=== PATIENT | male | born 1960 | race Two or more races ===

== ENCOUNTER 2020-03-10 11:12 | Outpatient (REF) | payer OTHER, SELFPAY ==
[2020-03-10 12:45] LABS: Alanine Aminotransferase 27 U/L (0-40); Albumin Level 4.4 g/dL (3.5-5.0); Alkaline Phosphatase 64 U/L (39-117); Anion Gap 12 (12-20); Aspartate Amino Transferase 19 U/L (5-37); Bilirubin Total 1.6 mg/dL (0.0-1.0); Blood Urea Nitrogen 17 mg/dL (9-16); Calcium 9.3 mg/dL (8.4-10.2); Carbon Dioxide 28 mmol/L (22-29); Chloride 104 mmol/L (96-108); Cholesterol 210 mg/dL; Estimated Glomerular Filt Rate > 60; Glucose Fasting 96 mg/dL (60-99); HDL Cholesterol 58 mg/dL; LDL Cholesterol Calculated 127 mg/dl; Potassium 4.7 mmol/l (3.3-5.1); Sodium 139 mmol/L (135-145); Total Protein 6.9 g/dL (6.5-8.0); Triglycerides 127 mg/dL
[2020-03-10 13:06] LABS: Prostate Specific Antigen Scr 2.72 ng/mL (<0.05-4.0)
== END 2020-03-10 11:13 | disposition home or self-care (01) ==
LOC: HO.LAB 11:12
PROVIDERS: PCP Physician Assistant; Visit Provider Physician Assistant
DX: E78.5 Hyperlipidemia, unspecified (principal); Z12.5 Encounter for screening for malignant neoplasm of prostate
CPT/HCPCS: 36415; 80053; 80061; 84153

== ENCOUNTER 2020-03-18 15:51 | Outpatient (REF) | payer OTHER, SELFPAY ==
--- NOTE | 2020-03-18 15:55 | XR_ITS ---
EXAMINATION: XR SCAPULA, LEFT CLINICAL INFORMATION: Strain of muscles, fascia, tendons of the shoulder and upper arm. COMPARISON: None TECHNIQUE: Two views of the left scapula. FINDINGS: There is no fracture or cortical disruption. Appropriate alignment at the glenohumeral and acromioclavicular joints. The visualized lung is clear. The visualized ribs are intact. XR/XR scapula LT IMPRESSION: Unremarkable appearance of the left scapula.
--- NOTE | 2020-03-18 15:55 | XR_ITS ---
EXAMINATION: XR THORACOLUMBAR SPINE CLINICAL INFORMATION: Strain of the muscles, fascia, and tendons. COMPARISON: None TECHNIQUE: 2 views of the thoracic spine. FINDINGS: The vertebral alignment is normal. No intrinsic bony abnormality. The disc heights and neural foramina are well maintained. Tiny endplate osteophytes at the lower thoracic spine. No fracture or subluxation. The surrounding prevertebral soft tissues are unremarkable. XR/XR thoracic spine 2V IMPRESSION: Mild degenerative changes at the lower thoracic spine.
== END 2020-03-18 15:52 | disposition home or self-care (01) ==
LOC: HO.XRAY 15:51
PROVIDERS: PCP Physician Assistant; Visit Provider Physician Assistant
DX: S46.812A Strain of other muscles, fascia and tendons at shoulder and upper arm level, left arm, initial encounter (principal); X58.XXXA Exposure to other specified factors, initial encounter; Y93.9 Activity, unspecified; Y92.9 Unspecified place or not applicable; Y99.8 Other external cause status; M54.6 Pain in thoracic spine
CPT/HCPCS: 72070; 73010

== ENCOUNTER 2020-04-21 14:20 | Outpatient (REF) | payer OTHER, SELFPAY | END 2020-04-21 14:21 | disposition home or self-care (01) | LOC: HO.LAB 14:20 | PROVIDERS: Visit Provider Nurse Practitioner Family | DX: L02.11 Cutaneous abscess of neck (principal) | CPT/HCPCS: 87071; 87147; 87186; 87205 ==

== ENCOUNTER → 2020-07-06 12:59 | Outpatient (BNVA) | payer OTHER, SELFPAY | PROVIDERS: PCP Physician Assistant; Visit Provider Internal Medicine Cardiovascular Disease | DX: R07.9 Chest pain, unspecified (principal); I49.3 Ventricular premature depolarization | CPT/HCPCS: 93005 ==

== ENCOUNTER → 2020-07-22 09:25 | Outpatient (REF) | payer OTHER, SELFPAY ==
--- NOTE | ~2020-07-22 | NM_ITS ---
Exercise Myocardial perfusion study Indication: Exertional chest pain to evaluate for myocardial ischemia Technique: The patient was brought in for an exercise perfusion study on 07/22/2020. Patient performed exercise as per Ricardo protocol and was injected 25 mCi of sestamibi was given intravenously one target HR was achieved. Images were obtained using the SPECT gamma camera interlaced with the gating device. Images were obtained in supine position. Resting perfusion study was performed on 07/23/2020. Patient was administered 25 mCi of sestamibi intravenously at rest. Images were then obtained in supine position. Images obtained with and without CT attenuation. Total DLP 82 mGy-cm. Images were processed with the software and compared side to side in short axis, horizontal long axis and vertical long axis views. Findings: The stress perfusion study showed non attenuated images show normal uptake of radiotracer in all segments of LV myocardium. Attenuation corrected images show minimal thinning of the basal septum of the LV myocardium. The gated study shows normal LV systolic function with calculated LVEF of 64%. LV cavity is normal in size. The gated study shows normal systolic wall thickening and contraction of all segments. There is no transient ischemic dilation. Resting study shows no change in perfusion pattern compared to stress perfusion study. Gating at rest reveals normal systolic wall motion with ejection fraction at 55%. The findings are consistent with normal myocardial perfusion. NM/NM cardiolite stress test Impression: 1. Normal myocardial perfusion 2. Gated LVEF is 64% 3. Transient ischemic dilatation not present Stress EKG is negative for ischemia
--- NOTE | 2020-07-22 09:15 | CA_ITS ---
Acquisition Time: 2020-07-22 09:29:36 Total Exercise Time: 00:04:55 Test Indications: CP, PALPITATIONS Medications: SEE CHART Protocol: BRIDGET Max HR: 160 BPM 100% of Pred: 160 BPM Max BP: 214/090 mmHG Max Work Load: 5.9 METS Exercise stress test with exercise 4 min 55 sec of Bridget protocol, with mod sob and fatigue, with 5/10 left chest discomfort at baseline which did not change with exercise, with isolated PVCs and ventricular cuplets, with hypertensive response to exercise with max BP 214/90, without EKG changes meeting criteria for ischemia, with borderline ST depression inferiorly and V5-V6 starting at 4 min recovery and back to baseline EKG by 9 min recovery. Nuclear images pending. Test reviewed with Dr Plaza. Referred By: Jose Oh Overread By: JULIANA YOUNGER
== END ==
LOC: HO.CARD 09:25
PROVIDERS: Visit Provider Internal Medicine Cardiovascular Disease
DX: R07.9 Chest pain, unspecified (principal)
CPT/HCPCS: 78452; 93016; 93017; 93018; A9500

== ENCOUNTER 2020-10-26 10:55 | Outpatient (REF) | payer OTHER, SELFPAY ==
[2020-10-26 12:07] LABS: Hematocrit 46.6 % (42-52); Hemoglobin 15.4 g/dl (14.0-18.0); Mean Corpuscular Hemoglobin 31.5 pg (27.0-33.0); Mean Corpuscular Volume 95.3 fL (80-98); Mean Platelet Volume 10.4 fL (9.4-12.4); Platelet Count 243 X10*3/uL (160-400); Red Blood Count 4.89 X10*6/uL (4.60-5.80); Red Cell Distribution Width 11.9 % (11.0-16.0); White Blood Count 5.2 X10*3/uL (4.8-10.8)
[2020-10-26 12:44] LABS: TSH reflex Free T4 0.98 uIU/mL (0.32-4.0)
[2020-10-26 13:02] LABS: Alanine Aminotransferase 25 U/L (0-40); Albumin Level 4.3 g/dL (3.5-5.0); Alkaline Phosphatase 60 U/L (39-117); Anion Gap 12 (12-20); Aspartate Amino Transferase 17 U/L (5-37); Bilirubin Total 1.8 mg/dL (0.0-1.0); Blood Urea Nitrogen 14 mg/dL (9-16); Calcium 9.6 mg/dL (8.4-10.2); Carbon Dioxide 27 mmol/L (22-29); Chloride 106 mmol/L (96-108); Cholesterol 186 mg/dL; Estimated Glomerular Filt Rate > 60; Glucose Fasting 103 mg/dL (60-99); HDL Cholesterol 51 mg/dL; LDL Cholesterol Calculated 114 mg/dl; Potassium 4.6 mmol/L (3.3-5.1); Sodium 140 mmol/L (135-145); Total Protein 6.6 g/dL (6.5-8.0); Triglycerides 109 mg/dL
== END 2020-10-26 10:56 | disposition home or self-care (01) ==
LOC: HO.LAB 10:55
PROVIDERS: Absent Provider Physician Assistant; PCP Physician Assistant; Visit Provider Internal Medicine Cardiovascular Disease
DX: E78.5 Hyperlipidemia, unspecified (principal); E78.9 Disorder of lipoprotein metabolism, unspecified; I10 Essential (primary) hypertension; I25.10 Atherosclerotic heart disease of native coronary artery without angina pectoris
CPT/HCPCS: 36415; 80053; 80061; 84443; 85027; 86141

== ENCOUNTER 2020-11-03 15:13 | Outpatient (REF) | payer OTHER, SELFPAY ==
--- NOTE | ~2020-11-03 | XR_ITS ---
EXAMINATION: XR FEMUR, LEFT CLINICAL INFORMATION: Pain in left thigh COMPARISON: None TECHNIQUE: AP and lateral views of the left femur were obtained. FINDINGS: The bones and soft tissues are normal. No fracture. No osseous lesions. XR/XR femur LT 2V IMPRESSION: Unremarkable left femur exam.
== END 2020-11-03 15:14 | disposition home or self-care (01) ==
LOC: HO.XRAY 15:13
PROVIDERS: PCP Physician Assistant; Visit Provider Physician Assistant
DX: M79.652 Pain in left thigh (principal); I10 Essential (primary) hypertension; E78.9 Disorder of lipoprotein metabolism, unspecified
CPT/HCPCS: 73552

== ENCOUNTER 2020-12-21 12:53 | Outpatient (REF) | payer OTHER, SELFPAY ==
--- NOTE | 2020-12-21 16:49 | MHC.AU.AHA ---
Adult Audiological Evaluation Date of Visit: 12/21/20 Reason for Appointment: Audiological re-evaluation to monitor the status of Mr. Aquino's hearing loss and determine if there has been a change in his hearing sensitivity. He has a known bilateral sensorineural hearing loss and uses hearing aids binaurally. He feels that the left hearing aid hasn't been loud enough lately and notes excessive battery drain from both aids. He notes that he traveled to [place] recently and while on the airplane had a lot of pressure build-up and pain that lasted for several days. He denies any changes to his medical history since his last visit. Previous Hearing Test Results: [facility] [place], 10/09/2018 - Mild sloping to moderate sensorineural hearing loss bilaterally. Ear History: Family History of Hearing Loss?: Yes Medical History: Medical History: Per EMR: Premature ventricular contractions, GERD, hyperlipidemia Hearing Instrument History- Right Ear: Pipe Bowl Paint Trimmer: [email or web address] Model: [employer] B90-SP Serial Number: [id number] Battery Size: 13 Repair Warranty: 03/23/2021 Loss and Damage Warranty: 03/23/2021 Dispensed By: [facility] Date of Fittin01/02/2018 Hearing Instrument History- Left Ear: Pipe Bowl Paint Trimmer: Phonak Model: [employer] B90-SP Serial Number: [id number] Battery Size: 13 Warranty: 03/23/2021 Loss and Damage Warranty: 03/23/2021 Dispensed By: [facility] Date of Fittin01/02/2018 Otoscopy: Right Ear: Unremarkable Left Ear: Unremarkable Tympanometry: Tympanometry performed due to: To assess integrity of the middle ear system Right Ear: Normal Middle Ear System (Type A) Left Ear: Normal Middle Ear System (Type A) Hearing Evaluation: Transducer(s) Used: Insert Earphones, Bone Conduction Method: Conventional Audiometry Stimuli Used: Pure Tones Right Ear: Description of Hearing: Mild sloping to severe sensorineural hearing loss from 250-8000 Hz. Left Ear: Description of Hearing: Mild sloping to moderately-severe sensorineural hearing loss from 250-8000 Hz. Speech Recognition Threshold (SRT): Method Used: Monitored Live Voice Stimuli Used: Spondee Words Right Ear: 50 dBHL Left Ear: 50 dBHL Word Discrimination: Method: Recorded Lists Word Lists Used: NU-6 Right Ear: 56% at 90 dBHL, 80% at 95 dBHL Left Ear: 88% at 90 dBHL Comparison: Compared to the most recent evaluation: Hearing is stable. Recommendations: Audiological re-evaluation in one year. Hearing aid maintenance performed today. Hearing aids are under warranty for a few more months, so sending them both for repair today to address excessive battery drain and have cleaned and checked. Set Mr. Aquino up with loaner hearing aids using his earmolds for the time being. Diagnosis: Primary Diagnosis: H90.3 Bilateral Sensorineural Hearing Loss Services Performed: Comprehensive Audiological Evaluation (CPT 06566) Tympanometry (CPT 78369) Signature: Provider: Gillian Fleming, CCC-A
== END 2020-12-21 12:54 | disposition home or self-care (01) ==
LOC: HO.SH 12:53
PROVIDERS: Visit Provider Physician Assistant
DX: H90.3 Sensorineural hearing loss, bilateral (principal)
CPT/HCPCS: 92557; 92567

== ENCOUNTER 2021-01-18 13:38 | Outpatient (REF) | payer SELFPAY | END 2021-01-18 13:39 | disposition home or self-care (01) | LOC: HO.HAP 13:38 | PROVIDERS: Visit Provider Physician Assistant | DX: Z13.89 Encounter for screening for other disorder (principal) ==

== ENCOUNTER 2021-04-08 11:49 | Outpatient (REF) | payer SELFPAY | END 2021-04-08 11:50 | disposition home or self-care (01) | LOC: HO.HAP 11:49 | PROVIDERS: Visit Provider Physician Assistant | DX: Z13.89 Encounter for screening for other disorder (principal) ==

== ENCOUNTER 2021-05-26 10:16 | Outpatient (REF) | payer OTHER, SELFPAY ==
--- NOTE | ~2021-05-26 | XR_ITS ---
EXAMINATION: XR ABDOMEN COMPLETE CLINICAL INDICATION: Left lower quadrant pain. COMPARISON: None TECHNIQUE: 3 AP supine and upright views of the abdomen and pelvis are submitted. FINDINGS: There is a moderate stool burden, suggesting possible constipation. Gas and stool are identified to the level of the rectum. No obstruction or ileus is seen. There is no free intraperitoneal air noted. No abnormal soft tissue calcifications are seen. There is no acute osseous abnormality XR/XR abdomen 3V IMPRESSION: Findings suggest possible constipation. No suleman bowel obstruction is seen. There is no free intraperitoneal air.
[2021-05-26 11:03] LABS: Hematocrit 45.7 % (42.0-52.0); Hemoglobin 15.4 g/dl (14.0-18.0); Mean Corpuscular HGB Conc 33.7 g/dl (31.0-36.0); Mean Corpuscular Hemoglobin 31.4 pg (27.0-33.0); Mean Corpuscular Volume 93.3 fL (80.0-98.0); Mean Platelet Volume 10.2 fL (9.4-12.4); Platelet Count 263 X10*3/uL (160-400); Red Cell Distribution Width 12.3 % (11.0-16.0); White Blood Count 6.5 X10*3/uL (4.8-10.8)
[2021-05-26 11:10] LABS: Estimated Average Glucose 108 mg/dL; Hemoglobin A1c % 5.4 %
[2021-05-26 11:32] LABS: Alanine Aminotransferase 34 U/L (0-40); Albumin Level 4.4 g/dL (3.5-5.0); Alkaline Phosphatase 56 U/L (39-117); Anion Gap 13 (12-20); Aspartate Amino Transferase 59 U/L (5-37); Bilirubin Direct 0.6 mg/dL (0.0-0.5); Bilirubin Total 2.1 mg/dL (0.0-1.0); Blood Urea Nitrogen 12 mg/dL (9-16); Calcium 9.8 mg/dL (8.4-10.2); Carbon Dioxide 26 mmol/L (22-29); Chloride 104 mmol/L (96-108); Estimated Glomerular Filt Rate > 60; Glucose Random 94 mg/dL (60-115); Lipase 45 U/L (8-78); Potassium 4.1 mmol/L (3.3-5.1); Sodium 139 mmol/L (135-145); Total Protein 6.9 g/dL (6.5-8.0)
[2021-05-26 11:53] LABS: TSH reflex Free T4 2.06 uIU/mL (0.32-4.0)
== END 2021-05-26 10:17 | disposition home or self-care (01) ==
LOC: HO.XRAY 10:16
PROVIDERS: PCP Physician Assistant; Visit Provider Physician Assistant
DX: R10.32 Left lower quadrant pain (principal); E78.9 Disorder of lipoprotein metabolism, unspecified
CPT/HCPCS: 36415; 74021; 80048; 80076; 83036; 83690; 84443; 85027

== ENCOUNTER → 2021-07-04 15:18 | Outpatient (BNVA) | payer OTHER, SELFPAY | PROVIDERS: PCP Physician Assistant; Referring Provider Physician Assistant; Visit Provider Internal Medicine Cardiovascular Disease | DX: I49.3 Ventricular premature depolarization (principal); E78.5 Hyperlipidemia, unspecified | CPT/HCPCS: 93005 ==

== ENCOUNTER 2021-10-21 14:45 | Outpatient (REF) | payer SELFPAY | END 2021-10-21 14:46 | disposition home or self-care (01) | LOC: HO.HAP 14:45 | PROVIDERS: Visit Provider Physician Assistant | DX: Z46.1 Encounter for fitting and adjustment of hearing aid (principal) | CPT/HCPCS: 99499 ==

== ENCOUNTER → 2022-03-17 08:38 | Outpatient (BNVA) | payer OTHER, SELFPAY | PROVIDERS: PCP Physician Assistant; Visit Provider Nurse Practitioner Family | DX: Z13.89 Encounter for screening for other disorder (principal) ==

== ENCOUNTER 2022-06-08 07:13 | Day surgery (SDC) | payer OTHER, SELFPAY ==
--- NOTE | 2022-06-07 10:13 | P.CONAN_ITS ---
Documented by User: Marie Hernandes NP 06/07/22 10:15 HPI - Anesthesia Eval Consult details Narrative: 62yo M for Colonoscopy HLD and PVCs stable at yearly cardiac visit 06/2021 [facility] Active Problems Active Problems: All Active Problems (Updated 05/15/22 @ 12:28 by Nael Bedolla PA-C) DELMA (generalized anxiety disorder) (Acute) [place] of foot (Acute) Migraines (Acute) Constipation (Acute) Gastroenteritis (Acute) LLQ abdominal pain (Acute) Left thigh pain (Acute) Colon cancer screening (Acute) SNHL (sensorineural hearing loss) (Acute) Exertional chest pain (Acute) Hyperlipidemia (Acute) PVC (premature ventricular contraction) (Acute) Neck abscess (Acute) GERD (gastroesophageal reflux disease) (Acute) Thoracic spine pain (Acute) Borderline high cholesterol (Acute) Trapezius muscle strain (Acute) Annual physical exam (Acute) Past Medical History Medical History [place] of foot Hyperlipidemia PVC (premature ventricular contraction) Family History Family History Father No problems noted. Mother Cancer Sister Colon polyps Surgical History Surgical History (Updated 06/08/22 @ 07:27 by Noa Morton RN) History of foot surgery Hx of colonoscopy Social History Social History Housing: Apartment Alcohol intake: current Alcohol intake frequency: holidays/special occasions only Patient Tobacco Use Status: Never used Tobacco e-Cigarette/Vaping Use: Never Used Second Hand Smoke Exposure: No Are you DNR?: No Advance Directives: No Advance Directives Information Provided: Yes Nutrition Risks: No Nutritional Risk service: No Current occupational status: employed Cognitive needs: No Hearing needs: Yes (Pt has hearing aids) Vision needs: No Meds Allergies Allergy/AdvReac Type Severity Reaction Status Date / Time Grass Mix Pollens Allergen Allergy Unknown Unknown Uncoded 06/08/22 07:28 Ext Home Medications Medication Instructions Recorded Confirmed Last Taken Type ibuprofen 800 mg tablet 800 mg PO BID 03/15/20 06/08/22 06/05/22 History loratadine 10 mg tablet (Claritin) 10 mg PO DAILY 03/15/20 06/08/22 Unknown History multivitamin 1 tab PO DAILY 07/06/20 06/08/22 Unknown History Exam Exam Date and Time: June 07, 2022 1013 Narrative Narrative: EKG 06/2021 normal sinus rhythm with Incomplete right bundle-branch block NM cardiolite stress test 2020 Impression: ? 1.? Normal myocardial perfusion 2.? Gated LVEF is 64% 3. Transient ischemic dilatation not present ? Stress EKG is negative for ischemia Assessment and Plan Assessment Anesthesia Assessment: Chart Reviewed Documented by User: Trev Hernández MD 06/08/22 07:58 [facility] Past Medical History Medical History [place] of foot Hyperlipidemia PVC (premature ventricular contraction) Family History Family History Father No problems noted. Mother Cancer Sister Colon polyps Family history of problems with anesthesia: No Surgical History Surgical History (Updated 06/08/22 @ 07:27 by Noa Morton RN) History of foot surgery Hx of colonoscopy History of Problems with Anesthesia: No Social History Social History Housing: Apartment Alcohol intake: current Alcohol intake frequency: holidays/special occasions only Patient Tobacco Use Status: Never used Tobacco e-Cigarette/Vaping Use: Never Used Second Hand Smoke Exposure: No Are you DNR?: No Advance Directives: No Advance Directives Information Provided: Yes Nutrition Risks: No Nutritional Risk service: No Current occupational status: employed Cognitive needs: No Hearing needs: Yes (Pt has hearing aids) Vision needs: No Meds Allergies Allergy/AdvReac Type Severity Reaction Status Date / Time Grass Mix Pollens Allergen Allergy Unknown Unknown Uncoded 06/08/22 07:28 Ext Home Medications Medication Instructions Recorded Confirmed Last Taken Type ibuprofen 800 mg tablet 800 mg PO BID 03/15/20 06/08/22 06/05/22 History loratadine 10 mg tablet (Claritin) 10 mg PO DAILY 03/15/20 06/08/22 Unknown History multivitamin 1 tab PO DAILY 07/06/20 06/08/22 Unknown History Exam Airway Mallampati Class: I TM Dist: >3cm Neck ROM: Full Partial: Upper Heart: ok Lungs: ok Assessment and Plan Final Anesthetic Review Family History of Problems with Anesthesia: No History of Problems with Anesthesia: No NPO: Yes ASA Class: II Final Preanesthetic Review: No Changes in Pt Med Stat, Meds/Allgs Chart Reviewed, Consent Obtained/Reviewed and Anes Risks/Benef Reviewed Patient Risk: Low Procedure Risk: Low Anesthetic Plan Anesthetic Plan: MAC: and Agree w/ Assess. and Plan Disposition: Standard PACU
[2022-06-08 07:14] VITALS: BMI 26.4
[2022-06-08] MEDS: Lactated Ringers 1,000 ML 100 ML IVCONT (07:44)
[2022-06-08 08:00] VITALS: BP 145/75; PULSE 70; RESP 18; TEMP 36.8; O2SAT 99
--- NOTE | 2022-06-08 08:50 | P.HPSUR_ITS ---
Pre-Procedural Eval Section A Date of Service: 06/08/22 Section B Chief Complaint: screening Details of Present Illness: sister with polyps of colon Relevant Family History (Specify if Yes): Yes Relevant Social History: None Present Medications: see Short Stay Collaborative assessment Medical History: Significant History ([place] of foot Hyperlipidemia PVC (premature ventricular contraction)) History of Previous Operations: Relevant previous surgery/procedure and date(s) (foot surgery, colonoscopy) Allergies: Allergies Allergy/AdvReac Type Severity Reaction Status Date / Time Grass Mix Pollens Allergen Allergy Unknown Unknown Uncoded 06/08/22 07:28 Ext Review of Systems Sugical H&P ROS: Negative: Constitution, Cardiovascular, Respiratory, Neurological, Psychiatric, Hem-Onc, Allergic/Immunologic, Gastrointestinal, Genitourinary, Musculoskeletal, Integumentary, Endocrine and Eyes/Ears/Nose/Throat Exam Surgical H&P Exam: Normal: HEENT, Normal: Heart, Normal: Lungs, Normal: Extremities, Normal: Abdomen, Normal: Skin and Normal: Neurological Plan Diagnosis/Plan: Unchanged I have reviewed the history and physical and performed a pertinent physical examination on my patient. No changes have occurred unless specified. Time Spent With Patient Time: Total time managing care of this patient today ____ minutes.
--- NOTE | 2022-06-08 09:34 | W.PM.OPN ---
Operative Note Operative Note Date of Service: 06/08/22 Narrative: Operative Information Procedure Description: Colonoscopy Indication: screening Anesthesia: MAC COLONOSCOPY Instrument: Olympus variable stiffness pediatric scope 190L Colonoscopy Monitoring: Vital signs and clinical assessment, continuous EKG monitoring, Pulse oximetry, Carbon Dioxide monitoring and blood pressure monitoring were done throughout the procedure. Colon withdrawal time was 21 minutes. Procedure: The patient was placed in the left lateral decubitis position and pre-procedure medications were administered. After a digital rectal examination of the ano-rectum, the video colonoscope was inserted into the rectum and advanced through the colon to the cecum/TI. The colonoscope was slowly withdrawn in a retrograde panoramic fashion and the colon mucosa was carefully examined including a retroflexed view of the rectum. Findings and interventions are described below. Procedure Difficulty: difficult due to tight colon and severe diverticulosis Findings: Terminal Ileum-normal Cecum:normal Ascending Colon: few diverticula seen Transverse Colon -normal Descending Colon:normal Sigmoid Colon: severe diverticulosis with luminal narrowing and hypertrophy with wide mouthed tics Rectum: Retroflexion with medium sized internal hemorrhoids, grade I, in proximal rectum a semi pedunculated polyp noted about 12 mm, removed with cold snare with one clip deployed for hemostasis. I used a distal attachment which helped stabilize the scope. Anorectum - normal Colon preparation: [place] Bowel Preparation Scale Right colon; 2 Transverse colon: 3 Left colon; 3 (0 = Unprepared colon segment with mucosa not seen due to solid stool that cannot be cleared. 1 = Portion of mucosa of the colon segment seen, but other areas of the colon segment not well seen due to staining, residual stool and/or opaque liquid. 2 = Minor amount of residual staining, small fragments of stool and/or opaque liquid, but mucosa of colon segment seen well. 3 = Entire mucosa of colon segment seen well with no residual staining, small fragments of stool or opaque liquid) Impression and Post Procedure Diagnosis: polyp internal hemorrhoids diverticular disease Plan: High fiber diet leaflet Avoid straining at stool, epsom salts and sitz bath, anusol supps or cream Repeat Colonoscopy in 5 years due to polyp or earlier if clinically indicated Above findings were reviewed with the patient and relevant handouts were provided if indicated.
[2022-06-08 09:42] VITALS: BP 121/75; PULSE 69; RESP 16; TEMP 36.9; O2SAT 96
[2022-06-08 09:57] VITALS: BP 122/77; PULSE 65; RESP 18; TEMP 36.9; O2SAT 97
== END 2022-06-08 10:26 | disposition home or self-care (01) ==
PROVIDERS: PCP Physician Assistant; Visit Provider Internal Medicine Gastroenterology
PROC: 0DJD8ZZ Inspection of Lower Intestinal Tract, Via Natural or Artificial Opening Endoscopic (ICD-10-PCS; CPT 45378; principal; 2022-06-08 08:50)
DX: Z12.11 Encounter for screening for malignant neoplasm of colon (principal); Z83.71 Family history of colonic polyps; D12.8 Benign neoplasm of rectum; K57.30 Diverticulosis of large intestine without perforation or abscess without bleeding; K64.0 First degree hemorrhoids; K21.9 Gastro-esophageal reflux disease without esophagitis; E78.5 Hyperlipidemia, unspecified; K59.00 Constipation, unspecified; I49.3 Ventricular premature depolarization; J30.1 Allergic rhinitis due to pollen; Z79.51 Long term (current) use of inhaled steroids; Z79.1 Long term (current) use of non-steroidal anti-inflammatories (NSAID); Z79.899 Other long term (current) drug therapy
CPT/HCPCS: 45385; 88305

== ENCOUNTER → 2022-06-20 15:07 | Outpatient (BNVA) | payer OTHER, SELFPAY | PROVIDERS: PCP Physician Assistant; Visit Provider Nurse Practitioner Family | DX: Z13.89 Encounter for screening for other disorder (principal) ==

== ENCOUNTER → 2022-07-18 13:09 | Outpatient (BNVA) | payer OTHER, SELFPAY | PROVIDERS: PCP Physician Assistant; Referring Provider Physician Assistant; Visit Provider Internal Medicine Cardiovascular Disease | DX: I49.3 Ventricular premature depolarization (principal); E78.2 Mixed hyperlipidemia | CPT/HCPCS: 93005 ==

== ENCOUNTER 2022-09-14 15:01 | Outpatient (REF) | payer OTHER, SELFPAY ==
--- NOTE | ~2022-09-14 | XR_ITS ---
EXAMINATION: XR CHEST CLINICAL INFORMATION: Cough, unspecified. COMPARISON: 06/03/2019 chest radiographs. TECHNIQUE: 2 views of the chest were obtained. FINDINGS: No significant abnormality is noted involving the heart, lungs, mediastinum, bony thorax or soft tissues. XR/XR chest 2V IMPRESSION: No acute cardiopulmonary process.
== END 2022-09-14 15:02 | disposition home or self-care (01) ==
LOC: HO.XRAY 15:01
PROVIDERS: PCP Physician Assistant; Visit Provider Physician Assistant
DX: R05.9 Cough, unspecified (principal)
CPT/HCPCS: 71046

== ENCOUNTER 2023-01-09 15:32 | Outpatient (REF) | payer OTHER, SELFPAY ==
[2023-01-09 17:04] LABS: Blood Urea Nitrogen 14 mg/dL (9-16); Estimated Glomerular Filt Rate > 60
== END 2023-01-09 15:33 | disposition home or self-care (01) ==
LOC: HO.LAB 15:32
PROVIDERS: PCP Physician Assistant; Visit Provider Nurse Practitioner Family
DX: R10.32 Left lower quadrant pain (principal); R10.11 Right upper quadrant pain; K57.90 Diverticulosis of intestine, part unspecified, without perforation or abscess without bleeding; K21.9 Gastro-esophageal reflux disease without esophagitis; K59.09 Other constipation
CPT/HCPCS: 36415; 82565; 84520

== ENCOUNTER 2023-01-09 15:32 | Outpatient (AMB) | payer OTHER, SELFPAY ==
--- NOTE | 2023-01-09 15:39 | A.OFFVIS_ITS ---
Intake Vital Signs 01/09/23 15:41 Height 5 ft 6 in Weight 160 lb 14.999 oz BMI 26.0 BP 140/81 H Blood Pressure Location Lt brachial Position Sitting Pulse 68 Intake Visit Reasons: 6 mnth follow up Intake Note: Jorge presents in the office as a 6 month follow up. CC: He states that he is here today because he had ad pains in his stomach on sunday. He states there is sensitivity on the LLQ. He took the linzess and it seemed to help with the pains but it took a while to kick in. The discomfort was still there. Public Health Dietitian Required: No Allergies Grass Mix Pollens Allergen Ext Allergy (Unknown, Uncoded 01/09/23 15:42) Unknown HPI 6 mnth follow up HPI Details LAST VISIT GERD (gastroesophageal reflux disease) Continue on omeprazole. Discussed with patient avoiding dietary triggers and late night snacking. Staying upright for minimum 3 hours after meals discussed with patient. LLQ abdominal pain Reports left lower quadrant pain that is ongoing. Patient is moving his bowels better now that he is taking Linzess. I will take Colace to help soften his stools. Patient was diagnosed with luminal narrowing in his sigmoid colon with moderate diverticulosis. Patient was encouraged to monitor his bowels and if he will be constipated or have no bowel movement for day or 2 he needs to call the office. Also discussed with patient the importance of following high-fiber diet. Making sure that he seems all his vegetables and avoid nuts, popcorn and corn. Constipation Continue taking Linzess every day. Patient will call the office if his constipation will get worse Diverticulosis Moderate diverticulosis seen on colonoscopy. High-fiber diet encouraged as mentioned above. Patient was encouraged also to drink plenty fluids. He can start also taking stool softener Tubular adenoma Tubular adenoma found without high-grade dysplasia or carcinoma. Patient will need to report for colorectal screening in 5 years sooner in clinically necessary. Patient is agreeable to this plan. I will see him in 6 months, sooner on as needed basis. He is agreeable to the plan and verbalizes understanding of instructions. He was given the opportunity to ask questions and all questions answered. ? Thank you for allowing me to participate in his care Plan Medications New docusate sodium 100 mg PO BEDTIME 90 caps 3RF K59.00 - Constipation, unspecified TODAY'S VISIT Patient is here today for follow-up. Patient reports that Sunday he started with left lower quadrant pain. Patient reports severe abdominal bloating. Does not matter will if he eats or not. Patient reports that he took Linzess and his pain got better, however he continues to feel bloated and tender to left lower quadrant. Patient denies any nausea or vomiting. Denies any melena, hematochezia, unintentional weight loss or ribbon like stools. Patient denies any dyspepsia, dysphagia or odynophagia. Patient states that his sister gave him Colace and he had a not a bowel movement 6 hours later. Patient states that he has not had a bowel movement in last couple days today he presents with left lower quadrant discomfort. Reports to be feeling bloated. [facility] Medical History Tubular adenoma Diverticulosis [place] of foot Hyperlipidemia PVC (premature ventricular contraction) Surgical History Hx of colonoscopy History of foot surgery Family History Father No problems noted. Mother Cancer Sister Colon polyps Housing: Apartment Alcohol intake: current Alcohol intake frequency: holidays/special occasions only Patient Tobacco Use Status: Never used Tobacco e-Cigarette/Vaping Use: Never Used Second Hand Smoke Exposure: No service: No Current occupational status: employed Cognitive needs: No Hearing needs: Yes (Pt has hearing aids) Vision needs: No Review of Systems Const Denies weight gain and Denies weight loss ENT Reports no additional complaints, Denies dysphagia and Denies odynophagia Card Reports no additional complaints Resp Reports no additional complaints GI Reports abdominal pain (LLQ), Denies belching, Denies melena, Reports bloating, Denies change in bowel habits, Reports constipation, Denies dysphagia, Denies excessive flatus, Denies dyspepsia, Denies heartburn, Denies diarrhea, Denies loose stools, Denies nausea, Denies odynophagia and Denies vomiting Reports no additional complaints Musc Reports no additional complaints Neuro Reports no additional complaints Psych Reports no additional complaints Endo Reports no additional complaints Physical Exam Vital Signs: Last Vital Signs Pulse 68 01/09/23 15:41 BP 140/81 H 01/09/23 15:41 BMI result Body Mass Index 26.0 Const General: healthy appearing, no acute distress and well developed Nutritional Appearance: well nourished Orientation/consciousness: patient oriented x3 HEENT Head: Yes normal to inspection, Yes normocephalic and Yes atraumatic Face and sinus: Yes normal facial exam Mouth: Normal oral and palatal mucosa present Throat: Yes posterior oropharynx normal, Yes tonsils normal and Yes uvula midline Eyes General: appearance normal, both eyes and all related structures Neck Neck: Yes normal visual inspection, Yes full ROM and Yes trachea midline Thyroid: Thyroid normal Resp Effort & Inspection: normal respiratory effort, able to speak in complete sentences, no tracheal deviation and symmetric chest movement Auscultation: clear to auscultation bilaterally Cardio Rate: regular rate Heart sounds: S1 normal heart sound present and S2 normal heart sound present GI Inspection: Yes normal to inspection and No distended Palpation (GI): Soft to palpation, not firm, nontender and No hepatosplenomegaly present Auscultation: normal bowel sounds General: Yes no CVA tenderness Back/Spine/Pelvis Back: no CVA tenderness Skin General skin exam: elasticity normal, turgor normal and dry skin Neuro General: patient oriented x3 Psych Appearance: grossly normal Mental Status: mental status grossly normal Affect: normal affect Assessment & Plan Assessment & Plan (1) LLQ abdominal pain: Code(s): R10.32 - Left lower quadrant pain (2) Abdominal pain: Code(s): R10.9 - Unspecified abdominal pain Qualifiers: Abdominal location: left lower quadrant Qualified Code(s): R10.32 - Left lower quadrant pain (3) Diverticulosis: Code(s): K57.90 - Diverticulosis of intestine, part unspecified, without perforation or abscess without bleeding (4) GERD (gastroesophageal reflux disease): Code(s): K21.9 - Gastro-esophageal reflux disease without esophagitis Qualifiers: Esophagitis presence: esophagitis presence not specified Qualified Code(s): K21.9 - Gastro-esophageal reflux disease without esophagitis (5) Constipation: Code(s): K59.00 - Constipation, unspecified Qualifiers: Constipation type: other constipation type Qualified Code(s): K59.09 - Other constipation Plan Patient was encouraged to increase fluid intake and activity to promote better bowel motility. Patient was diagnosed with moderate diverticulosis to sigmoid colon. He has not moved his bowels for couple days. I will send him for CT scan to rule out diverticulitis. Patient will take Colace 2 capsules. Continue Linzess daily. I will see him in 6 months, sooner on as needed basis. Patient is agreeable to this plan and verbalizes understanding of instructions. He was given the opportunity to ask questions and all questions answered. Thank you for allowing me to participate in his care Orders: Orders Creatinine Today R10.11 - Right upper quadrant pain Blood Urea Nitrogen Today R10.11 - Right upper quadrant pain CT abdomen pelvis w IV con Today R10.32 - Left lower quadrant pain, R10.9 - Unspecified abdominal pain Medications: Changed From docusate sodium 100 mg PO BEDTIME 90 caps 3RF K59.00 - Constipation, unspecified To docusate sodium 200 mg (2 x 100 mg) PO DAILY 180 caps 3RF K59.00 - Constip ation, unspecified Coding Level of Care Code Est Pt Level 4 (66730) Diagnoses LLQ abdominal pain R10.32 Left lower quadrant abdominal pain R10.32 Abdominal location: left lower quadrant Diverticulosis K57.90 Gastroesophageal reflux disease, unspecified whether esophagitis present K21.9 Esophagitis presence: esophagitis presence not specified Other constipation K59.09 Constipation type: other constipation type Time Spent (min) 35 Comment 25 minutes spent with patient and additional 10 minutes spent reviewing his records
[2023-01-09 15:41] VITALS: BP 140/81; PULSE 68; BMI 26.0
== END 2023-01-09 16:03 | disposition home or self-care (01) ==
PROVIDERS: PCP Physician Assistant; Visit Provider Nurse Practitioner Family
DX: R10.32 Left lower quadrant pain (principal); K57.90 Diverticulosis of intestine, part unspecified, without perforation or abscess without bleeding; K21.9 Gastro-esophageal reflux disease without esophagitis; K59.09 Other constipation
CPT/HCPCS: 99214

== ENCOUNTER 2023-01-24 09:18 | Outpatient (REF) | payer OTHER, SELFPAY ==
--- NOTE | ~2023-01-24 | CT_ITS ---
EXAMINATION: CT ABDOMEN AND PELVIS WITH CONTRAST CLINICAL INFORMATION: Abdominal pain. COMPARISON: None available. TECHNIQUE: Multidetector volumetric images were obtained from the superior aspect of the liver through the pubic symphysis following administration 85 mL of Omnipaque 350 intravenous contrast. Sagittal and coronal reformatted images were obtained on the technologist's workstation. Oral contrast: No. This CT examination was performed using dose optimization techniques as appropriate, variously including the following: *Automated exposure control *Adjustment of mA and/or kV according to patient size (this includes techniques or standardized protocols for targeted exams where dose is matched to indication/reason for exam; i.e. extremities or head) *Use of iterative reconstruction technique DLP: 279 mGy-cm FINDINGS: LUNG BASES: The visualized lung bases are unremarkable. LIVER, GALLBLADDER, AND BILIARY TREE: The liver is mildly enlarged at 17.8 cm in greatest dimension. Difficult to wincher hepatic steatosis after IV contrast. No focal hepatic lesion or biliary ductal dilatation is present. A single tiny gallstone or possibly calcified tiny polyp is present in the gallbladder (6:23). The gallbladder is otherwise unremarkable with no evidence of gallbladder wall thickening, or obvious pericholecystic inflammatory changes. PANCREAS: Unremarkable. SPLEEN: Unremarkable. ADRENAL GLANDS: Unremarkable. KIDNEYS AND URETERS: The kidneys are normal in size, shape, and attenuation. No hydronephrosis, hydroureter, or calculi seen. No perinephric stranding. BLADDER: Unremarkable. GASTROINTESTINAL TRACT: Diverticular changes are present predominantly in the sigmoid colon with some associated mucosal thickening and some small adjacent lymph nodes are present in the mesentery in this region. Some extremely subtle pericolonic inflammatory change is seen which in the correct clinical setting could represent very mild colonic diverticulitis. No extraluminal air. No fluid collections or free intraperitoneal fluid. The small and large bowel are otherwise unremarkable. The appendix is unremarkable. ABDOMINAL WALL: No significant hernia is appreciated. LYMPH NODES: No retroperitoneal lymphadenopathy. VASCULAR: Calcific atherosclerotic changes are present in the aorta and iliofemoral vessels. There is no evidence of an abdominal aortic aneurysm. PELVIC VISCERA: Mild BPH. OSSEOUS STRUCTURES: Unremarkable. CT/CT abdomen pelvis w IV con IMPRESSION: 1. Colonic diverticulosis with some extremely subtle pericolonic inflammatory changes which in the correct clinical setting could represent very mild colonic diverticulitis. 2. Mild hepatomegaly with probable hepatic steatosis. 3. Cholelithiasis or possible tiny calcified polyp without cholecystitis. 4. Mild BPH. Fleischner guidelines were followed.
[2023-01-24] MEDS: iohexoL 350 MG/ML 100 ML INFUS..BTL IV (11:39)
[2023-01-24] MEDS: Barium Sulfate Oral (Berry) 450 ML ORAL.SUSP 900 ML PO (11:40)
== END 2023-01-24 09:19 | disposition home or self-care (01) ==
LOC: HO.CT 09:18
PROVIDERS: PCP Physician Assistant; Visit Provider Nurse Practitioner Family
DX: R10.32 Left lower quadrant pain (principal)
CPT/HCPCS: 74177; Q9967

== ENCOUNTER 2023-07-13 15:27 | Outpatient (AMB) | payer OTHER, SELFPAY ==
--- NOTE | 2023-07-13 15:28 | MHC.OFFVIS ---
Vital Signs 07/13/23 15:29 Height 5 ft 6 in Weight 154 lb 5.177 oz BMI 24.9 BP 140/78 H Blood Pressure Location Lt brachial Position Sitting Pulse 75 Intake Visit Reasons: 6 months follow up Intake Note: Jorge presents in the office as a 6 month follow up. CC: He states that he is still having the pains in the left side with the sensitivity in his stomach. When he takes Linzess he states that he gets diarrhea- he was told that it is common on that medication so he is not concerned about it. Refrigeration Service Inspector Required: No Allergies Grass Mix Pollens Allergen Ext Allergy (Unknown, Uncoded 07/13/23 15:33) Unknown HPI HPI 6 months follow up: Details: LAST VISIT LLQ abdominal pain Abdominal pain Diverticulosis GERD (gastroesophageal reflux disease) Constipation Plan Patient was encouraged to increase fluid intake and activity to promote better bowel motility. Patient was diagnosed with moderate diverticulosis to sigmoid colon. He has not moved his bowels for couple days. I will send him for CT scan to rule out diverticulitis. Patient will take Colace 2 capsules. Continue Linzess daily. I will see him in 6 months, sooner on as needed basis. Patient is agreeable to this plan and verbalizes understanding of instructions. He was given the opportunity to ask questions and all questions answered. ? Thank you for allowing me to participate in his care Orders Orders Creatinine Today R10.11 Blood Urea Nitrogen Today R10.11 CT abdomen pelvis w IV con Today R10.32, R10.9 Medications Changed Changed From docusate sodium 100 mg PO BEDTIME 90 caps 3RF K59.00 Changed To docusate sodium 200 mg (2 x 100 mg) PO DAILY 180 caps 3RF K59.00 TODAY'S VISIT Patient is here today for follow-up and to discuss CT scan results. Patient reports on and off upper left quadrant discomfort. Patient states that the pain is there when he presses on it. Worse when he is constipated, however now that he is taking Colace he reports that he is moving his bowels better. Patient is Linzess and reports loose stools after he takes it. Patient denies melena, hematochezia, unintentional weight loss or ribbon like stools. Patient denies any dyspepsia, dysphagia or odynophagia. [facility] [place] Medical History Tubular adenoma Diverticulosis [place] of foot Hyperlipidemia PVC (premature ventricular contraction) Surgical History Hx of colonoscopy History of foot surgery Family History Father No problems noted. Mother Cancer Sister Colon polyps Social History Housing: Apartment Alcohol intake: current Alcohol intake frequency: holidays/special occasions only Patient Tobacco Use Status: Never used Tobacco e-Cigarette/Vaping Use: Never Used Second Hand Smoke Exposure: No service: No Current occupational status: employed Cognitive needs: No Hearing needs: Yes (Pt has hearing aids) Vision needs: No Review of Systems Const Denies weight gain and Denies weight loss ENT Reports no additional complaints, Denies dysphagia and Denies odynophagia Card Reports no additional complaints Resp Reports no additional complaints GI Reports abdominal pain (LUQ), Denies belching, Denies melena, Reports bloating, Denies change in bowel habits, Denies dysphagia, Denies excessive flatus, Denies dyspepsia, Denies heartburn, Denies diarrhea, Reports loose stools, Denies nausea, Denies odynophagia and Denies vomiting Reports no additional complaints Musc Reports no additional complaints Neuro Reports no additional complaints Psych Reports no additional complaints Endo Reports no additional complaints Physical Exam Vital Signs: Last Vital Signs Pulse 75 07/13/23 15:29 BP 140/78 H 07/13/23 15:29 BMI result Body Mass Index 24.9 Const General: healthy appearing, no acute distress and well developed Nutritional Appearance: well nourished Orientation/consciousness: patient oriented x3 Resp Effort & Inspection: normal respiratory effort, able to speak in complete sentences, no tracheal deviation and symmetric chest movement Auscultation: clear to auscultation bilaterally Cardio Rate: regular rate GI Inspection: Yes normal to inspection and No distended Palpation (GI): Soft to palpation, not firm, nontender and No hepatosplenomegaly present Auscultation: normal bowel sounds General: Yes no CVA tenderness Back/Spine/Pelvis Back: no CVA tenderness Skin General skin exam: elasticity normal, turgor normal and dry skin Neuro General: patient oriented x3 Psych Appearance: grossly normal Mental Status: mental status grossly normal Results Reviewed Results Reviewed: CT SCAN IMPRESSION: 1. Colonic diverticulosis with some extremely subtle pericolonic inflammatory changes which in the correct clinical setting could represent very mild colonic diverticulitis. 2. Mild hepatomegaly with probable hepatic steatosis. 3. Cholelithiasis or possible tiny calcified polyp without cholecystitis. 4. Mild BPH. Assessment & Plan Assessment & Plan (1) Diverticulosis: Code(s): K57.90 - Diverticulosis of intestine, part unspecified, without perforation or abscess without bleeding Category: Medical (2) GERD (gastroesophageal reflux disease): Code(s): K21.9 - Gastro-esophageal reflux disease without esophagitis Category: Medical Qualifiers: Esophagitis presence: esophagitis presence not specified Qualified Code(s): K21.9 - Gastro-esophageal reflux disease without esophagitis (3) Constipation: Code(s): K59.00 - Constipation, unspecified Category: Medical Qualifiers: Constipation type: other constipation type Qualified Code(s): K59.09 - Other constipation (4) Abdominal pain: Code(s): R10.9 - Unspecified abdominal pain Qualifiers: Abdominal location: left upper quadrant Qualified Code(s): R10.12 - Left upper quadrant pain Plan Patient will stop Linzess and will start taking Dulcolax tablets and stool softener. I will start him on antibiotic. CT scan did not show true inflammation subtle thickening in the sigmoid could represent inflammation and patient continues to have left-sided pain. Pain located more in the upper area of his abdomen. Patient will return in the office in 4 months, sooner on as needed basis. Patient is agreeable to this plan and verbalizes understanding of instructions. He was given the opportunity to ask questions and all questions answered. Thank you for allowing me to participate in his care Medications: New bisacodyl (Dulcolax (bisacodyl)) 10 mg (2 x 5 mg) PO BEDTIME 180 tabs 4RF amoxicillin-pot clavulanate 875-125 mg 1 tab PO BID 7 days 14 tabs 0RF Changed From docusate sodium 200 mg (2 x 100 mg) PO DAILY 180 caps 3RF K59.00 - Constipation, unspecified To docusate sodium 100 mg PO DAILY 90 caps 3RF K59.00 - Constipation, unspecified On Hold linaclotide (Linzess) Hold Comment: Doctor's Order 145 mcg PO DAILY 90 days 90 caps 2RF K59.09 - Other constipation Coding Level of Care Code Est Pt Level 4 (01584) Diagnoses Diverticulosis K57.90 Gastroesophageal reflux disease, unspecified whether esophagitis present K21.9 Esophagitis presence: esophagitis presence not specified Other constipation K59.09 Constipation type: other constipation type Left upper quadrant abdominal pain R10.12 Abdominal location: left upper quadrant Time Spent (min) 35 Comment 20 minutes spent with patient and additional 15 minutes spent reviewing his records
[2023-07-13 15:29] VITALS: BP 140/78; PULSE 75; BMI 24.9
== END 2023-07-13 16:06 | disposition home or self-care (01) ==
PROVIDERS: PCP Physician Assistant; Visit Provider Nurse Practitioner Family
DX: K57.90 Diverticulosis of intestine, part unspecified, without perforation or abscess without bleeding (principal); K21.9 Gastro-esophageal reflux disease without esophagitis; K59.09 Other constipation; R10.12 Left upper quadrant pain
CPT/HCPCS: 99214

== ENCOUNTER → 2023-07-13 15:27 | Outpatient (BNVA) | payer OTHER, SELFPAY | PROVIDERS: PCP Physician Assistant; Visit Provider Nurse Practitioner Family ==

== ENCOUNTER 2023-07-26 13:53 | Outpatient (AMB) | payer OTHER, SELFPAY ==
--- NOTE | 2023-07-26 13:57 | A.OFFVIS_ITS ---
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 Required: No Allergies Grass Mix Pollens Allergen Ext Allergy (Unknown, Uncoded 07/13/23 15:33) Unknown Medication List - Last Reconciled 07/26/23 by Jose Oh MD amoxicillin-pot clavulanate 875-125 mg 1 tab PO BID 7 days atorvastatin 80 mg PO DAILY bisacodyl (Dulcolax (bisacodyl)) 10 mg (2 x 5 mg) PO BEDTIME citalopram 20 mg PO DAILY 90 days docusate sodium 100 mg PO DAILY fluticasone propionate 50 mcg/actuation 2 sprays intranasal DAILY linaclotide (Linzess) 145 mcg PO DAILY 90 days loratadine (Claritin) 10 mg PO DAILY omeprazole 40 mg PO DAILY 90 days HPI Comments Details: Jorge Comes for follow-up. Complains of upper left-sided chest pain when he his using that muscle and stretching. He does not have any exertional chest pain. No palpitations, lightheadedness, syncope. Takes all his medications. No recent lipid panel.. He did not undergo coronary calcium score. [facility] Medical History Tubular adenoma Diverticulosis [place] of foot Hyperlipidemia PVC (premature ventricular contraction) Surgical History Hx of colonoscopy History of foot surgery Family History Father No problems noted. Mother Cancer Sister Colon polyps Social History Housing: Apartment Alcohol intake: current Alcohol intake frequency: holidays/special occasions only Patient Tobacco Use Status: Never used Tobacco e-Cigarette/Vaping Use: Never Used Second Hand Smoke Exposure: No service: No Current occupational status: employed Cognitive needs: No Hearing needs: Yes (Pt has hearing aids) Vision needs: No Review of Systems Const Denies chills, Denies fatigue, Denies fever(s), Denies frequent falls, Denies weakness, Denies weight gain and Denies weight loss ENT Denies dizziness Card Denies chest pain, Denies leg edema, Denies lightheadedness, Denies palpitations, Denies dyspnea, Denies dyspnea on exertion, Denies orthopnea and Denies other (loss of consciousness) Resp Denies cough, Denies dyspnea and Denies dyspnea on exertion GI Denies hematochezia and Denies change in stool character Musc Denies abnormal gait, Denies muscle weakness, Denies numbness, Denies radiating pain into limb and Denies tingling Neuro Denies abnormal gait, Denies dizziness, Denies frequent falls, Denies numbness, Denies tingling and Denies weakness Endo Denies fatigue and Denies palpitations Physical Exam Vital Signs: Last Vital Signs Pulse 58 07/26/23 13:58 BP 120/78 07/26/23 13:58 BMI result Body Mass Index 25.6 Const General: cooperative, comfortable, alert and awake Nutritional Appearance: average body habitus Orientation/consciousness: patient oriented x3 Limitations: no limitations Neck Neck: Yes trachea midline, Yes supple and Yes no JVD Carotids: no bruits Resp Effort & Inspection: normal respiratory effort Auscultation: clear to auscultation bilaterally Cardio Jugular venous distension: no JVD Palpation: normal PMI Rate: regular rate Rhythm: regular rhythm Heart sounds: S1 normal heart sound present and S2 normal heart sound present GI Auscultation: normal bowel sounds Skin General skin exam: no rashes or lesions noted Neuro General: patient oriented x3 and no focal motor deficits Extrem General: Yes no clubbing, cyanosis or edema Psych Appearance: grossly normal Office Procedures EKG Details: EKG shows NSR with TAYO and incomplete RBBB [id number], Complete Assessment & Plan Assessment & Plan (1) Hyperlipidemia: Code(s): E78.5 - Hyperlipidemia, unspecified Category: Medical Qualifiers: Hyperlipidemia type: mixed hyperlipidemia Qualified Code(s): E78.2 - Mixed hyperlipidemia Plan: Hyperlipidemia with high-intensity statin therapy. Advise lipid panel near future has not had any lipid panel in few years. Importance of annual check was discussed with him. Continue lifestyle modification. If LDL is well optimized on high-intensity statin therapy no further workup is indicated but if not I would suggest coronary calcium score. He would think about it. (2) PVC (premature ventricular contraction): Code(s): I49.3 - Ventricular premature depolarization Category: Medical Plan: PVCs without any obvious symptoms at this point time. No further workup or pharmacotherapy indicated. Advised to call me with any new symptoms. Avoidance of stimulants was discussed. Will follow up in the clinic in 1 year's time, sooner p.r.n.. Orders: Orders Lipid Panel Today E78.2 - Mixed hyperlipidemia Coding Level of Care Code Est Pt Level 3 (94007) Diagnoses Mixed hyperlipidemia E78.2 Hyperlipidemia type: mixed hyperlipidemia PVC (premature ventricular contraction) I49.3 CPT Codes EKG - CPT: [id number], Complete ([id number])
[2023-07-26 13:58] VITALS: BP 120/78; PULSE 58; BMI 25.6
== END 2023-07-26 15:14 | disposition home or self-care (01) ==
PROVIDERS: Visit Provider Internal Medicine Cardiovascular Disease
DX: E78.2 Mixed hyperlipidemia (principal); I49.3 Ventricular premature depolarization
CPT/HCPCS: 93010; 99213

== ENCOUNTER → 2023-07-26 13:53 | Outpatient (BNVA) | payer OTHER, SELFPAY | PROVIDERS: Visit Provider Internal Medicine Cardiovascular Disease | DX: I49.3 Ventricular premature depolarization (principal); E78.2 Mixed hyperlipidemia | CPT/HCPCS: 93005 ==

== ENCOUNTER 2023-07-31 12:30 | Outpatient (REF) | payer OTHER, SELFPAY ==
[2023-07-31 14:46] LABS: Cholesterol 212 mg/dL (<200); HDL Cholesterol 59 mg/dL (>40); LDL Cholesterol Calculated 136 mg/dL (<100); Triglycerides 87 mg/dL (<150)
== END 2023-07-31 12:31 | disposition home or self-care (01) ==
LOC: HO.WFDLDS 12:30
PROVIDERS: Visit Provider Internal Medicine Cardiovascular Disease
DX: E78.2 Mixed hyperlipidemia (principal)
CPT/HCPCS: 36415; 80061

== ENCOUNTER 2023-11-16 15:31 | Outpatient (AMB) | payer OTHER, SELFPAY ==
[2023-11-16 15:33] VITALS: BP 150/90; PULSE 64; O2SAT 94; BMI 25.8
--- NOTE | 2023-11-16 15:33 | A.OFFVIS_ITS ---
Vital Signs 11/16/23 15:33 Height 5 ft 6 in Weight 160 lb 0.889 oz BMI 25.8 BP 150/90 H Blood Pressure Location Rt brachial Position Sitting Pulse 64 Pulse Source Pulse Oximeter Pulse Oximetry (%) 94 Oxygen Delivery Method Room Air Intake Visit Reasons: 4 month follow up Intake Note: Joreg presents in office today for a scheduled 4 mos FUV. CC: Pt was rx'd dulcolax and colace at their last visit. Pt was also rx'd amoxicillin. No lab orders placed at the last visit. Pt reports that they have been OK since their last visit. Pt does report having intermittent abd pain and cramping. Pt reports as of last night, he was sitting on the couch and felt a fluttering pain in the LLQ. Pt does report having irregularities with BMs still. Pt has been having intermittent constipation and diarrhea. Pt reports that their PCP had rx'd linzess which he states has been working better than the other medications he had. Pt states that the rx he received from this office have been causing abd pain and cramping. He does not exhibit that response to the linzess. Sexual Assault Social Worker Required: No Allergies Seasonal Allergies Allergy (Intermediate, Verified 11/16/23 15:35) Sneezing HPI HPI 4 month follow up: Details: LAST VISIT Diverticulosis GERD (gastroesophageal reflux disease) Constipation Abdominal pain Plan Patient will stop Linzess and will start taking Dulcolax tablets and stool softener. I will start him on antibiotic. CT scan did not show true inflammation subtle thickening in the sigmoid could represent inflammation and patient continues to have left-sided pain. Pain located more in the upper area of his abdomen. Patient will return in the office in 4 months, sooner on as needed basis. Patient is agreeable to this plan and verbalizes understanding of instructions. He was given the opportunity to ask questions and all questions answered. ? Thank you for allowing me to participate in his care Medications New bisacodyl (Dulcolax (bisacodyl)) 10 mg (2 x 5 mg) PO BEDTIME 180 tabs 4RF amoxicillin-pot clavulanate 875-125 mg 1 tab PO BID 7 days 14 tabs 0RF Changed Changed From docusate sodium 200 mg (2 x 100 mg) PO DAILY 180 caps 3RF K59.00 Changed To docusate sodium 100 mg PO DAILY 90 caps 3RF K59.00 On Hold linaclotide (Linzess) Hold Comment: Doctor's Order 145 mcg PO DAILY 90 days 90 caps 2RF K59.09 TODAY'S VISIT Patient reports that he was placed on Linzess by his PCP and reports that when he is taking it he has diarrhea. Patient states that he only takes it once in awhile. Reports that the is a very high co-pay 60 dollars with each time he gets it filled. Patient was taking Colace with Dulcolax and was reporting to have abdominal cramping. Patient reports that the pain in his in the left lower quadrant. Patient also reports significant abdominal bloating. Patient is not following up on any particular diet. Patient admits to not drinking enough fluids and not eating fiber. Patient reports that he eats lot of pasta bread meat and pork. Patient is not eating much of vegetables. Patient denies any melena, hematochezia. Patient denies any dyspepsia, dysphagia or odynophagia. Patient is taking omeprazole daily and reports that his symptoms are suppressed for the most part. Patient reports that his bowels alternate occasionally he will have loose stools, however for the most part he is constipated. [facility] Medical History Tubular adenoma Diverticulosis [place] of foot Hyperlipidemia PVC (premature ventricular contraction) Surgical History Hx of colonoscopy History of foot surgery Family History Father No problems noted. Mother Cancer Sister Colon polyps Social History Housing: Apartment Alcohol intake: current Alcohol intake frequency: holidays/special occasions only Patient Tobacco Use Status: Never used Tobacco e-Cigarette/Vaping Use: Never Used Second Hand Smoke Exposure: No service: No Current occupational status: employed Cognitive needs: No Hearing needs: Yes (Pt has hearing aids) Vision needs: No Review of Systems Const Denies weight gain and Denies weight loss ENT Reports no additional complaints, Denies dysphagia and Denies odynophagia Card Reports no additional complaints Resp Reports no additional complaints GI Reports abdominal pain (LLQ), Denies belching, Denies melena, Reports bloating, Denies change in bowel habits, Reports constipation, Denies dysphagia, Denies excessive flatus, Denies dyspepsia, Denies heartburn, Denies diarrhea, Reports loose stools, Denies nausea, Denies odynophagia and Denies vomiting Reports no additional complaints Musc Reports no additional complaints Neuro Reports no additional complaints Psych Reports no additional complaints Endo Reports no additional complaints Physical Exam Vital Signs: Last Vital Signs Pulse 64 11/16/23 15:33 BP 150/90 H 11/16/23 15:33 Pulse Ox 94 11/16/23 15:33 Oxygen Delivery Method Room Air 11/16/23 15:33 BMI result Body Mass Index 25.8 Const General: healthy appearing, no acute distress and well developed Nutritional Appearance: well nourished Orientation/consciousness: patient oriented x3 Resp Effort & Inspection: normal respiratory effort, able to speak in complete sentences, no tracheal deviation and symmetric chest movement Auscultation: clear to auscultation bilaterally Cardio Rate: regular rate GI Inspection: Yes normal to inspection and No distended Palpation (GI): Soft to palpation, not firm, nontender and No hepatosplenomegaly present Auscultation: normal bowel sounds General: Yes no CVA tenderness Back/Spine/Pelvis Back: no CVA tenderness Skin General skin exam: elasticity normal, turgor normal and dry skin Neuro General: patient oriented x3 Psych Appearance: grossly normal Mental Status: mental status grossly normal Assessment & Plan Assessment & Plan (1) LLQ abdominal pain: Code(s): R10.32 - Left lower quadrant pain Category: Medical (2) Constipation: Code(s): K59.00 - Constipation, unspecified Category: Medical Qualifiers: Constipation type: other constipation type Qualified Code(s): K59.09 - Other constipation (3) GERD (gastroesophageal reflux disease): Code(s): K21.9 - Gastro-esophageal reflux disease without esophagitis Category: Medical Qualifiers: Esophagitis presence: esophagitis presence not specified Qualified Code(s): K21.9 - Gastro-esophageal reflux disease without esophagitis (4) Diverticulosis: Code(s): K57.90 - Diverticulosis of intestine, part unspecified, without perforation or abscess without bleeding Category: Medical Plan Long discussion with patient about diet choices. Increasing fluid intake and activity to promote better bowel motility. Patient was also encouraged to increase fiber add probiotic daily. FODMAP diet discussed with patient again. List of food recommended as well as list of food to avoid given to patient. Patient reports abdominal cramping specially when he has to have a bowel movement, most likely related to Dulcolax and Colace. Patient will start senna and fiber therapy. Will stop Linzess. High co-pay and patient had on desirable effect where he had diarrhea and did not feel like he empties his bowels well. Patient will follow-up in 1 year. He will call our office if he will have any GI concerning symptoms. If he will continue to have a left lower quadrant pain, inability to have a bowel movement and fever to go to ER or call our office. He is agreeable to current plan of care and verbalizes understanding of instructions. He was given the opportunity to ask questions and all questions answered. Thank you for allowing me to participate in his care Medications: New sennosides (Natural Senna Laxative) 17.2 mg (2 x 8.6 mg) PO BEDTIME 60 tabs 3RF constipation K59.00 - Constipation, unspecified sennosides (Natural Senna Laxative) 17.2 mg (2 x 8.6 mg) PO BEDTIME 60 tabs 3RF constipation K59.00 - Constipation, unspecified methylcellulose (laxative) (Citrucel) take it with full glass of water 500 mg PO DAILY 30 tabs 2RF K59.00 - Constipation, unspecified methylcellulose (laxative) (Citrucel) take it with full glass of water 500 mg PO DAILY 30 tabs 2RF K59.00 - Constipation, unspecified Discontinued linaclotide (Linzess) Discontinued Reason: Doctor's Order 145 mcg PO DAILY 90 days 90 caps 2RF K59.09 - Other constipation docusate sodium Discontinued Reason: Doctor's Order 100 mg PO DAILY 90 caps 3RF K59.00 - Constipation, unspecified bisacodyl (Dulcolax (bisacodyl)) Discontinued Reason: Doctor's Order 10 mg (2 x 5 mg) PO BEDTIME 180 tabs 4RF Coding Level of Care Code Est Pt Level 4 (33344) Diagnoses LLQ abdominal pain R10.32 Other constipation K59.09 Constipation type: other constipation type Gastroesophageal reflux disease, unspecified whether esophagitis present K21.9 Esophagitis presence: esophagitis presence not specified Diverticulosis K57.90 Time Spent (min) 35 Comment 25 minutes spent with patient and additional 10 minutes spent reviewing his records
== END 2023-11-16 16:07 | disposition home or self-care (01) ==
PROVIDERS: PCP Physician Assistant; Visit Provider Nurse Practitioner Family
DX: R10.32 Left lower quadrant pain (principal); K59.09 Other constipation; K21.9 Gastro-esophageal reflux disease without esophagitis; K57.90 Diverticulosis of intestine, part unspecified, without perforation or abscess without bleeding
CPT/HCPCS: 99214

== ENCOUNTER → 2023-11-16 15:31 | Outpatient (BNVA) | payer OTHER, SELFPAY | PROVIDERS: PCP Physician Assistant; Visit Provider Nurse Practitioner Family ==

== ENCOUNTER 2024-04-07 15:07 | Outpatient (AMB) | payer OTHER, SELFPAY ==
--- NOTE | 2024-04-07 15:29 | AM.OFFWIN_ITS ---
Intake Vital Signs 04/07/24 15:31 Weight 157 lb BP 130/84 Blood Pressure Location Lt brachial Position Sitting Pulse 56 Pulse Source Pulse Oximeter Pulse Oximetry (%) 98 Oxygen Delivery Method Room Air Intake Visit Reasons: EP Rt foot ingrown nail? Intake Note: Patient here for ingrown nail of right foot. Patient Tobacco Use Status: Never used Tobacco Allergies Seasonal Allergies Allergy (Intermediate, Verified 04/07/24 15:31) Sneezing Do you need a note to return to daycare/school/sports/work: No HPI HPI Comments History of Present Illness Details History of Present Illness - The patient is a 64-year-old male pres enting with a complaint of a possible ingrown toenail on his right great to. - Symptoms include swelling, pain, and p uffiness, specifically when the shoe is removed, with no associated drainage. - The issue has persisted for a while, w ith previous instances managed independently by the patient, indicating a mild history. - The patient has experienced similar is sues previously but reports increased severity during the current episode. - There is an ongoing problem with onych omycosis on the opposite foot - The patient has not previously engaged with podiatric care for his foot issues. Physical Exam General: Cooperative, healthy appearing, comfortable, no acute distress and well developed Orientation: Patient oriented x3 Limitations: No limitations Head: Normal to inspection Ears: Hearing grossly normal bilaterally Nose: Normal external nose present Face and sinus: Normal facial exam Eyes: Appearance normal, both eyes and all related structures Neck: Normal visual inspection and Yes full ROM Respiratory: Normal respiratory effort and able to speak in complete sentences. Skin: No rashes or lesions noted Neuro: Patient oriented x3 Extremities: see below [facility] Medical History Tubular adenoma Diverticulosis [place] of foot Hyperlipidemia PVC (premature ventricular contraction) Surgical History Hx of colonoscopy History of foot surgery Family History Father No problems noted. Mother Cancer Sister Colon polyps Social History Housing: Apartment Alcohol intake: current Alcohol intake frequency: holidays/special occasions only Patient Tobacco Use Status: Never used Tobacco e-Cigarette/Vaping Use: Never Used Second Hand Smoke Exposure: No service: No Current occupational status: employed Cognitive needs: No Hearing needs: Yes (Pt has hearing aids) Vision needs: No Review of Systems Const All systems reviewed & are unremarkable except as noted in HPI and below Physical Exam Vital Signs: Last Vital Signs Pulse 56 04/07/24 15:31 BP 130/84 04/07/24 15:31 Pulse Ox 98 04/07/24 15:31 Oxygen Delivery Method Room Air 04/07/24 15:31 Extrem Right lower extremity: foot Details: normal to inspection, tenderness Location: of the great toe Location: over the nailbed (lateral side of nail ingrown, no evidence of infection noted) and toes with normal ROM Assessment & Plan Assessment & Plan (1) Ingrown toenail of right foot: Code(s): L60.0 - Ingrowing nail Plan: No evidence of paronychia. The treatment plan is centered around arranging a referral to a riverboat captain for the suspected ingrown toenail, given the unavailability of specialized tools in this setting. The referral has been marked as stat and fixed it to reflect the correct foot/toe (was sent as left great toe, is actually right great toe) to ensure the patient's painful condition is addressed promptly. The patient has been advised to monitor for any signs of infection, though none are present at this time. For the existing onychomycosis on the opposite foot, further management will remain under the guidance of the patient's primary care physician. Follow-up arrangements and any procedural undertakings will be communicated to the patient by the riverboat captain post-evaluation. Patient was informed and verbally consented to the use of an ambient scribe for clinic note documentation during this visit. Orders: Referrals Podiatry Referral L60.0 - Ingrowing nail Coding Level of Care Code Est Pt Level 4 (02479) Diagnoses Ingrown toenail of right foot L60.0
[2024-04-07 15:31] VITALS: BP 130/84; PULSE 56; O2SAT 98
== END 2024-04-07 15:40 | disposition home or self-care (01) ==
PROVIDERS: PCP Physician Assistant; Visit Provider Physician Assistant
DX: L60.0 Ingrowing nail (principal)

== ENCOUNTER 2024-04-14 15:43 | Outpatient (AMB) | payer OTHER, SELFPAY ==
--- NOTE | 2024-04-14 16:17 | MHC.PC.OV ---
Vital Signs 04/14/24 16:18 Height 5 ft 6 in Weight 154 lb 8 oz BMI 24.9 BP 122/80 Blood Pressure Location Lt brachial Position Sitting Pulse 58 Pulse Source Pulse Oximeter Temp 97.3 F Temp Source Temporal Artery Scan Pulse Oximetry (%) 96 Oxygen Delivery Method Room Air Intake Visit Reasons: Annual Exam Intake Note: Patient is here today for a physical. Silk Worker Required: No Fisher Purse Seine: Not Required per policy Accompanied by: Self / Same As Patient Allergies Seasonal Allergies Allergy (Intermediate, Verified 04/14/24 16:37) Sneezing Medication List - Last Reconciled 04/14/24 by Nael Bedolla PA-C atorvastatin 80 mg PO DAILY citalopram 20 mg PO DAILY 90 days fluticasone propionate 50 mcg/actuation 2 sprays intranasal DAILY loratadine (Claritin) 10 mg PO DAILY methylcellulose (laxative) (Citrucel) 500 mg PO DAILY omeprazole 40 mg PO DAILY 90 days sennosides (Natural Senna Laxative) 17.2 mg (2 x 8.6 mg) PO BEDTIME Tobacco use date assessed: 04/14/24 Fall risk assessment: No Falls in past year Last assessed Fall Risk: 04/14/24 Dental Screening Dental Screen Date: 04/14/24 Did you have a dental visit in the last 12 months?: Yes Did you have a dental problem in the last 6 months where you did not have access to dental care?: No Was dental information given to patient?: Patient has dentist HPI Annual Exam HPI Details Patient is a 64-year-old here today for an annual physical.? Patient has a past medical history significant for hyperlipidemia, GERD, anxiety disorder, borderline high cholesterol. Concerns--> reports over the last 2 days having a cough and runny nose. .. Hyperlipidemia: Continues on atorvastatin 80 mg, has been quite awhile since checking his lipid panel. He agrees on checking his fasting lipid panel in near future... .. Anxiety: Continues to use SSRI therapy with good effect on reducing his anxiety. No further reports a heart palpitations Vaccine: Up-to-date with COVID, flu, tetanus and pneumonia vaccines , considering shingles vaccine Colorectal cancer screening: Up-to-date with colonoscopy- has tubular adenoma polyp- followed by [place] [facility] Medical History (Updated 04/15/24 @ 07:33 by Nael Bedolla PA-C) Tubular adenoma Diverticulosis Hyperlipidemia PVC (premature ventricular contraction) Surgical History History of tooth extraction Hx of colonoscopy History of foot surgery Family History (Updated 04/14/24 @ 16:41 by Nael Bedolla PA-C) Father CAD (coronary artery disease) Mother Cancer Sister Colon polyps Social History (Updated 04/14/24 @ 16:41 by Nael Bedolla PA-C) Housing: Apartment Alcohol intake: current Alcohol intake frequency: holidays/special occasions only Patient Tobacco Use Status: Never used Tobacco e-Cigarette/Vaping Use: Never Used Second Hand Smoke Exposure: No service: No Current occupational status: employed Current occupation: [employer] Cognitive needs: No Hearing needs: Yes (Pt has hearing aids) Vision needs: Yes (Glasses) Questionnaire PHQ-9 Over the last 2 weeks, how often have you been bothered by any of the following problems? 1. Little interest or pleasure in doing things: not at all 2. Feeling down, depressed, or hopeless: not at all 3. Trouble falling or staying asleep, or sleeping too much: not at all 4. Feeling tired or having little energy: not at all 5. Poor appetite or overeating: not at all 6. Feeling bad about yourself - or that you are a failure or have let yourself or your family down: not at all 7. Trouble concentrating on things, such as reading the newspaper or watching television: not at all 8. Moving or speaking so slowly that other people could have noticed. Or the opposite - being so fidgety or restless that you have been moving around a lot more than usual: not at all 9. Thoughts that you would be better off or of hurting yourself in some way: not at all Total score: 0 Depression Screening Interpretation: Negative Depression Screening Done: Yes 91100 - PHQ-9 Billing: Yes Source: Developed by Drs. Andreas Coronel, Africa Archer, Familia Stephens and colleagues, with an educational tacos from [employer]. Thrive Questionnaire Date Thrive assessed: 04/14/24 I am a: Patient What is your living situation today?: I have a steady place to live Within the past 12 months, did the food you bought not last and you didn't have the money to get more?: Never true Within the past 12 months, did you worry whether your food would run out before you got money to buy more?: Never true Do you have trouble paying for medicines?: No Do you have trouble getting transportation to medical appointments?: No Do you have trouble paying your heating and electricity bill?: No Do you have trouble taking care of your child, family member or friend?: No Do you have trouble with day-to-day activities such as bathing, preparing meals, shopping, managing finances, etc.?: No Are you currently unemployed and looking for a job?: No Are you interested in more education?: No Please select the resources that you would like help with: None Currently or been in a relationship where the following occur: No concerns reported THRIVE Score: 0 AUDIT C Alcohol Use Questionnaire (AUDIT-C) 1. How often do you have a drink containing alcohol?: Monthly or less 2. How many drinks containing alcohol do you have on a typical day when you are drinking?: 1 or 2 Total Score: 1 DELMA-7 AMB Questionnaire DELMA-7 Date DELMA - 7 assessed: 04/14/24 Feeling nervous, anxious, or on edge: 0 = Not at all Not being able to stop or control worryin = Not at all Worrying too much about different things: 0 = Not at all Trouble relaxin = Not at all Being so restless that it is hard to sit still: 0 = Not at all Becoming easily annoyed or irritable: 0 = Not at all Feeling afraid as if something awful might happen: 0 = Not at all Total DELMA-7 score (0-4 normal; 5-9 mild; 10-14 moderate; 15-21 severe): 0 Source: Developed by Drs. Andreas Coronel, Africa Archer, Familia Stephens and colleagues, with an educational tacos from [employer]. DELMA-7 Assessment Billing DELMA-7 Assessment Tool: DELMA-7 Assessment 19511 Review of Systems Const Denies body aches, Denies chills, Denies excessive sweating, Denies fatigue, Denies fever(s) and Denies headache(s) Eyes Denies blurry vision ENT Denies dysphagia, Denies vertigo, Denies dizziness, Denies headache(s), Denies hearing loss and Denies tinnitus Card Denies chest pain, Denies chest pain with activity, Denies syncope, Denies irregular heart rhythm and Denies dyspnea Resp Denies chest congestion, Reports cough, Denies hemoptysis, Denies dyspnea and Denies wheezing GI Denies abdominal pain, Denies melena, Denies hematochezia, Denies coffee ground emesis, Denies dysphagia, Denies diarrhea, Denies nausea and Denies vomiting Denies difficulty urinating, Denies dysuria, Denies urinary frequency, Denies urinary hesitancy and Denies urinary urgency Musc Denies arthralgias, Denies limited range of motion, Denies muscle cramps and Denies muscle weakness Skin/Breast Denies rash and Denies skin ulcer Neuro Denies Abnormal speech present, Denies confusion, Denies vertigo, Denies dizziness, Denies syncope, Denies headache(s), Denies memory loss and Denies seizure-like activity Psych Denies anxiety, Denies confusion, Denies depression, Denies memory loss, Denies panic attacks and Denies paranoia Endo Denies excessive sweating, Denies fatigue, Denies flushing, Denies polydipsia and Denies polyuria Aller/Immun Denies wheezing Physical exam (Primary Care) Vital Signs: Last Vital Signs Temp 97.3 F 04/14/24 16:18 Pulse 58 04/14/24 16:18 BP 122/80 04/14/24 16:18 Pulse Ox 96 04/14/24 16:18 Oxygen Delivery Method Room Air 04/14/24 16:18 BMI result Body Mass Index 24.9 Tobacco/Smoking Status: Tobacco use Status Tobacco use date assessed 04/14/24 04/14/24 16:24 Patient Tobacco Use Status Never used Tobacco 04/14/24 16:41 e-Cigarette/Vaping Use Never Used 04/14/24 16:41 PHQ-9: PHQ-9 Score PHQ-9: Total score 0 04/14/24 16:38 Depression Screening Interpretation: Negative Thrive Assessment: Date of Thrive Assessment Date Thrive assessed 04/14/24 04/14/24 16:24 Currently or been in a relationship where the following occur: No concerns reported Const General: cooperative, comfortable, no acute distress, alert and awake; No confusion Orientation/consciousness: oriented to person, oriented to place, patient oriented x3 and No confusion HENMT Head: Yes normocephalic Ears: external ears normal and TM's normal bilaterally Face and sinus: No sinus tenderness Mouth: Normal oral and palatal mucosa present and tongue normal Teeth and gingiva: dentition normal and gingiva normal Throat: Yes posterior oropharynx normal, Yes tonsils normal and Yes uvula midline Eyes Conjunctivae: conjunctivae normal Sclerae: sclerae normal Pupils: Equal, round and reactive pupils present EOM: EOMs intact bilaterally Direct Ophthalmoscopy: No no photophobia Neck Neck: Yes no lymphadenopathy, No tender and Yes no JVD Thyroid: Thyroid normal Carotids: no bruits Chest Chest palpation & inspection: no tenderness Resp Effort & Inspection: normal respiratory effort, no audible wheezes, not labored and no stridor Auscultation: no crackles, no rales, no rhonchi and no wheezes Cardio Jugular venous distension: no JVD Rate: regular rate, not bradycardic and not tachycardic Rhythm: regular rhythm Bruits: no carotid bruits Peripheral pulses: Peripheral pulses 2+ throughout GI Inspection: Yes normal to inspection, No abdominal wall ecchymosis and No visible herniation Palpation (GI): Soft to palpation, nontender, no guarding, not rigid and No hepatosplenomegaly present Auscultation: normoactive bowel sounds General: Yes no CVA tenderness Back/Spine/Pelvis Back: no CVA tenderness and No back tenderness Cervical Spine: cervical ROM normal Thoracic/Lumbar Spine: thoracic and lumbar spine normal to inspection, straight leg raise negative bilaterally, No thoraco-lumbar ROM limited and No lumbar spinal tenderness Skin Lesions: no lesions Rashes: no rashes Wounds: no wounds Neuro General: oriented to person, oriented to place, patient oriented x3, CN's II-XI intact bilaterally and No confusion Cranial nerves: Yes Equal, round and reactive pupils present and Yes Normal accommodation reflex present Cognition (Neuro): normal cognition Speech: No Abnormal speech present Gait exam (Neuro): Normal gait present Motor exam (neuro): 5/5 motor strength present throughout Extrem Right upper extremity: full ROM; no cyanosis Left upper extremity: full ROM; no cyanosis Right lower extremity: no edema Left lower extremity: no edema Psych Appearance: grossly normal Mental Status: mental status grossly normal Affect: normal affect Attitude: cooperative Thought process: Normal thought process present Coding Level of Care Code Est Pt Prev Care 40-64y(80013) Diagnoses Annual physical exam Z00.00 Acute cough R05.1 Cough type: acute Mixed hyperlipidemia E78.2 Hyperlipidemia type: mixed hyperlipidemia Tubular adenoma D36.9 DELMA (generalized anxiety disorder) F41.1 Additional Codes PHQ-9 - 69999 - PHQ-9 Billing: Yes ([id number]) DELMA-7 Assessment Billing - DELMA-7 Assessment Tool: DELMA-7 Assessment 82455 ([id number]) Assessment & Plan Assessment & Plan (1) Annual physical exam: Code(s): Z00.00 - Encounter for general adult medical examination without abnormal findings Category: Medical Plan: As per HPI (2) Cough: Code(s): R05.9 - Cough, unspecified Category: Medical Qualifiers: Cough type: acute Qualified Code(s): R05.1 - Acute cough Plan: Patient reports a 2 day history of a cough. Otherwise physical exam today without any rhonchi or wheezing.. Will send for chest x-ray to rule out a community-acquired pneumonia. (3) Hyperlipidemia: Code(s): E78.5 - Hyperlipidemia, unspecified Category: Medical Qualifiers: Hyperlipidemia type: mixed hyperlipidemia Qualified Code(s): E78.2 - Mixed hyperlipidemia Plan: Patient continues on high dose statin therapy. Will recheck lipid panel to ensure appropriate total cholesterol and LDL. Goal LDL is to be below 130 (4) Tubular adenoma: Code(s): D36.9 - Benign neoplasm, unspecified site Category: Medical Plan: Followed by gastroenterology. He is up-to-date with his colonoscopies. (5) DELMA (generalized anxiety disorder): Code(s): F41.1 - Generalized anxiety disorder Category: Medical Plan: Patient's DELMA-7 score 0, has a history of anxiety to which he takes his SSRI therapy with good effect. Not interested in speaking with a mental health therapist. Orders: Orders Lipid Panel 04/14/24 E78.2 - Mixed hyperlipidemia Comprehensive [place]. Panel Fast 04/14/24 E78.2 - Mixed hyperlipidemia Complete Blood Count no Diff 04/14/24 E78.2 - Mixed hyperlipidemia Prostate Specific Antigen Scr 04/14/24 E78.2 - Mixed hyperlipidemia, Z12.5 - Encounter for screening for malignant neoplasm of prostate XR chest 2V 04/14/24 R05.1 - Acute cough Medications: New amoxicillin 500 mg PO Q12H 14 tabs 0RF 7 days R05.1 - Acute cough Refilled fluticasone propionate 50 mcg/actuation 2 sprays intranasal DAILY 16 grams 3RF E78.2 - Mixed hyperlipidemia Patient Instructions: Goal: LDL to be below 130 Barriers: Adherence to physical activity and healthy eating habits
[2024-04-14 16:18] VITALS: BP 122/80; PULSE 58; TEMP 36.3; O2SAT 96; BMI 24.9
== END 2024-04-14 16:55 | disposition home or self-care (01) ==
PROVIDERS: PCP Physician Assistant; Visit Provider Physician Assistant
DX: Z00.00 Encounter for general adult medical examination without abnormal findings (principal); R05.1 Acute cough; E78.2 Mixed hyperlipidemia; D36.9 Benign neoplasm, unspecified site; F41.1 Generalized anxiety disorder

== ENCOUNTER → 2024-04-14 15:43 | Outpatient (BNVA) | payer OTHER, SELFPAY | PROVIDERS: PCP Physician Assistant; Visit Provider Physician Assistant | DX: Z00.01 Encounter for general adult medical examination with abnormal findings (principal); R05.1 Acute cough; E78.2 Mixed hyperlipidemia; F41.1 Generalized anxiety disorder; D36.9 Benign neoplasm, unspecified site | CPT/HCPCS: 96127 ==

== ENCOUNTER 2024-06-18 15:36 | Outpatient (REF) | payer SELFPAY ==
--- OUTSIDE RECORDS SUMMARY | 2024-06-18 16:28 | XMS_ITS ---
Author Organization [facility] sanders [place] Address [address] [place] [address] Care Team Providers Care Green Chain Marker Name Role Phone Nael Bedolla Primary Care Provider Unavailab Misbah Cuellar Unavailable [phone] Allergies No Known Allergies REASON FOR VISIT Fungal Nails, Ingrown nail Medications Medication SIG (Take, Route, Frequency, Duration) Notes Start Date End Date Status Atorvastatin Calcium 80 MG TAKE 1 TABLET BY MOUTH EVERY DAY Oral for 90 Days Active Fluticasone Propionate 50 MCG/ACT USE 2 SPRAYS IN EACH NOSTRIL EVERY DAY Nasal for 30 Days Active Linzess 145 MCG TAKE 1 CAPSULE BY MO UTH EVERY DAY Oral for 90 Days Active Citalopram Hydrobromide 20 MG TAKE 1 TABLET BY MOUTH EVERY DAY Oral for 90 Days Active Omeprazole 40 MG TAKE 1 CAPSULE BY MO UTH EVERY DAY. Oral for 90 Days Active Ciclopirox 0.77 % 1 application Donor Services Specialist ally Once a day for 30 days Active Allergy Active Fiber Therapy 500 MG 2 tablets with a fu ll glass of water as needed Orally Six times a day Active Multivitamin - 1 tablet Orally Once a day Active Amoxicillin 500 MG Oral for 7 Days Active Social History Tobacco Use: Social History Observation Description Date Details (start date - stop date) Never Smoker NA - NA Tobacco Control (Standard) Question Answer Notes Tobacco use: Nonsmoker Additional Findings: Tobacco non-user Current no nsmoker AUDIT-C (Standard) Question Answer Notes Did you have a drink contain ing alcohol in the past year? Yes How often did you have a dri nk containing alcohol in the past year? Monthly or less (1 point) How many drinks did you have on a typical day when you were drinking in the past year? 1 or 2 drinks (0 point) How often did you have six o r more drinks on one occasion in the past year? Never (0 point) Points 1 Interpretation Negative Problems Problem Type SNOMED Code ICD Code Onset Dates Problem Status W/U Status Risk Notes Problem Onychomycosis (319084196) Onychomycosis (B35.1) Active confirmed Vital Signs Height 5 ft 6 in in 04/28/2024 Weight 160 lbs 04/28/2024 BMI 25.82 kg/m2 04/28/2024 Blood pressure systolic 122 mm Hg 04/29/19 25 Blood pressure diastolic 75 mm Hg 025 Procedures Procedure Date Ordered Date Performed Result Body Sit e 90980-ORH 04/28/2024 N/A Encounters Encounter Location Date Provider Diagnosis [facility] [place] [address] [place] [id number] 04/28/2024 Misbahalexis AslheyKrish Onychomycosis B35.1 ; Pain in left toe(s) M79.675 and Ingrown nail L60.0 Assessments Encounter Date Diagnosis (ICD Code) Assessment Notes Treatment Notes Treatment Clinical Notes Section Notes 04/28/2024 Onychomycosis (ICD-10 - B35.1) 04/28/2024 Pain in left toe(s) (ICD-10 - M79.675) 04/28/2024 Ingrown nail (ICD-10 - L60.0) Plan Of Treatment Medication Medication Name Sig Start Date Stop Date Notes Ciclopirox 0.77 % 1 application Donor Services Specialist ally Once a day for 30 days Pending Test Test Name Order Date [id number] 04/28/2024 Next Appt Details Follow Up: 3-4 Weeks, Reason : Provider Name:Misbah Rutherford , 08/18/2024 03:30:00 PM, [address] [facility], [place] [address], [place], [phone], Procedure Notes * Category Sub-Category Detail Notes Matricectomy (OP NOTE) Consent The patie nt was brought to the examination room and placed on the table in a supine position. The pre/dimple/postoperative course, risks, complications and alternatives were discussed, understood and accepted by the patient. No guarantees were given regarding the surgical outcome Procedure A digital prep with alcohol or betadine was performed. 3cc of 1 percent Xylocaine Plain local anesthetic was administered to the toe via digital block utilizing aseptic technique. A digital touriquet was applied. The affected toenail portion was undermined, incised and resected to the eponychium and matrix. It was noted to be significantly incurvated and hypertrophied. The nailbed and matrix were curetted and the nail groove, bed and matrix were cauterized with Phenol, 3 applications of 30 seconds each from a cotton tip applicator, no underling bone was identified. The surrounding skin was protected from the Phenol with Bacitracin ointment. The tourniquet was released and capillary fill time was intact to the digit. A sterile Bacitracin dressing was applied Disposition Disposition: The pat ient tolerated the procedure and anesthesia well and left in good condition, alert, oriented and stable in no acute distress. Local wound care instructions were discussed and dispensed. There were no complications and the prognosis is favorable, Recommended alternating/staggering Tylenol XS 2 tabs and Motrin 600mg q 6 hrs ea for discomfort, Rx narcotic postop pain meds were deferred Location Lateral nail border, T5 Progress Notes * Jorge SALCIDO SrDOB:04/1959 (64 yo M)Acc No.[id number]:04/28/2024 Progress Notes Patient:?Jorge SALCIDO Clinton r Provider:?Misbah Rutherford DPM :1960???Age:64 Y???Sex:Male Adama e:04/28/2024 Address:[address] [place], [place] [phone] Pcp:Nael Bedolla Subjective: * Chief Complaints: * ???Fungal NailsIngrown nail * HPI: ???Painful Nails:?Nature:?aching, tender, discolored, thick.?Location:?Great toe, 2nd toe, Left foot.?Duration:?several months.?Course:?worse.?Aggravated by:?shoegear causing difficulty standing/walking.?Treatments:?none.?Ingrown toenail:?Location:?Great toe, Right foot.?Duration:?several years.?Treatments:?self treatment - would like something more permanent done today.? * ROS:?General/Constitutional:?Nausea?denies.?Vomiting?denies.?Hunger Thirst?denies.?Loss appetite?denies.?Chills?denies.?Fatigue?denies.?Fever?denies.?Night Sweats?denies.?Unexplained weight loss?denies.?Unexplained weight gain?denies.?HEENTM:?Dentures?admits.?Dizziness?denies.?Glasses/contacts?admits.?Retinopathy?de nies.?Blurred/double vision?denies.?TMJ?denies.?Discharge/drainage?denies.?Implants?denies.?Sore throat?denies.?Dental implants?denies.?Hard of hearing ?admits.?Difficulty chewing/swallowing/speaking?denies.?Nose bleeds?denies.?Sore mouth?denies.?Respiratory:?On Oxygen?denies.?Pneumonia/pleurisy?denies.?Bronchitis?denies.?Emphysema?denies.?C oughing?denies.?Cough blood?denies.?Shortness of breath?denies.?Wheezing?denies.?Cardiovascular:?Pacemaker?denies.?MVP?denies.?WPW?denies.?CHF?denies.?Heart attack?denies.?Septal defect?denies.?Rapid beat?denies.?Chest pain ?admits.?Atrial Fib.?denies.?Murmur/Palpitations?admits.?Gastrointestinal:?Hemorrhoids?denies.?Stomach/Abdominal pain?admits.?Dark blood stool?denies.?Irritable bowel ?denies.?Constipation?admits.?Diarrhea?denies.?Hematology:?Swelling?denies.?Clots?denies.?Varicose Veins?denies.?Bruising?denies.?Bleeding problem?denies.?Genitourinary:?Blood urine?denies.?Frequent/Painfu/urination/bladder control?denies.?Kidney stones?denies.?Infection (UTI)?denies.?Nephropathy?denies.?sex trans dis (STD)?denies.?Prostate?denies.?Musculoskeletal:?Hammertoes?denies.?Bunions?denies.?Back Pain?admits.?Muscle Cramps/ Resting?denies.?Muscle cramps / walking?denies.?Generalized aches and pains?denies.?Weakness?denies.?Integ.:?Stern?denies.?Scars?denies.?Corns/calluses?denies.?Ingrown nails?admits.?Painful nails?admits.?Open Sores?denies.?Rashes?denies.?Neurologic:?Difficulty sleeping?admits.?Brain disorder?denies.?Numbness?denies.?Balance trouble?denies.?Confusion?denies.?Fainting/blackouts?denies.?Tingling?denies.?Tr emors?denies.? * Medical History:? * Surgical History:?[facility] 2024 * Hospitalization/Major Diagno stic Procedure:?Denies Past Hospitalization * Family History:?Mother: dece ased, diagnosed with Other malignant neoplasm of unspecified site.?Father: alive, diagnosed with Unspecified essential hypertension, Unspecified heart disease, Unspecified cerebral artery occlusion with cerebral infarction.?Siblings: osteoarthritis, Plantar Fasciitis.? * Social History:?Tobacco Use:?Tobacco Control (Standard)?Tobacco use:?Nonsmoker ?Additional Findings: Tobacco non-user?Current nonsmoker ???Drugs/Alcohol:?Drugs?Have you used drugs other than those for medical reasons in the past 12 months??No ???Miscellaneous:?Caffeine: yes, frequency:. ???Drug/Alcohol:?AUDIT-C (Standard)?Did you have a drink containing alcohol in the past year??Yes ?How often did you have a drink containing alcohol in the past year??Monthly or less (1 point) ?How many drinks did you have on a typical day when you were drinking in the past year??1 or 2 drinks (0 point) ?How often did you have six or more drinks on one occasion in the past year??Never (0 point) ?Points?1 ?Interpretation?Negative * Medications:?TakingAllergy M ultivitamin - Tablet 1 tablet Orally Once a day Fiber Therapy 500 MG Tablet 2 tablets with a full glass of water as needed Orally Six times a day Amoxicillin 500 MG Tablet Oral Fluticasone Propionate 50 MCG/ACT Suspension USE 2 SPRAYS IN EACH NOSTRIL EVERY DAY Nasal Citalopram Hydrobromide 20 MG Tablet TAKE 1 TABLET BY MOUTH EVERY DAY Oral Linzess 145 MCG Capsule TAKE 1 CAPSULE BY MOUTH EVERY DAY Oral Omeprazole 40 MG Capsule Delayed Release TAKE 1 CAPSULE BY MOUTH EVERY DAY. Oral Atorvastatin Calcium 80 MG Tablet TAKE 1 TABLET BY MOUTH EVERY DAY Oral Medication List reviewed and reconciled with the patientTaking Allergy Taking Multivitamin - Tablet 1 tablet Orally Once a day Taking Fiber Therapy 500 MG Tablet 2 tablets with a full glass of water as needed Orally Six times a day Taking Amoxicillin 500 MG Tablet Oral Taking Fluticasone Propionate 50 MCG/ACT Suspension USE 2 SPRAYS IN EACH NOSTRIL EVERY DAY Nasal Taking Citalopram Hydrobromide 20 MG Tablet TAKE 1 TABLET BY MOUTH EVERY DAY Oral Taking Linzess 145 MCG Capsule TAKE 1 CAPSULE BY MOUTH EVERY DAY Oral Taking Omeprazole 40 MG Capsule Delayed Release TAKE 1 CAPSULE BY MOUTH EVERY DAY. Oral Taking Atorvastatin Calcium 80 MG Tablet TAKE 1 TABLET BY MOUTH EVERY DAY Oral Medication List reviewed and reconciled with the patient * Allergies:?N.K.D.A.yes[Aller gies Verified] Objective: * Vitals:?Ht:5 ft 6 in, Wt:160 , BMI:25.82, Shoe size:8.5, BP:122/75mm Hg, Ht-cm: 167.64 cm, Wt-k.58 kg. * Examination: ???Nails: ?NAILS are:?Elongated, overgrown, dystrophic, lytic, greater than 3mm thick, discolored and friable with crumbly malodorous subungual debris, with pain on palpation, TA, T1.?Ingrown Nail: ?INSPECTION:?Reveals incurvation, pain on palpation, groove hypertrophy, Lateral nail border, T5.?General Examination: ?GENERAL APPEARANCE:?Reveals a pleasant, alert, well-nourished, well- developed, well hydrated individual, who demonstrates proper attention to hygiene/body habitus, and is in no acute distress, Pt serves as own?historian for office visit today.?ORIENTED:?person, place, and time.?Neurological: ?SENSORY:?Neurological exam reveals intact sensorium, pain sensation normal, vibration sensation intact, pinprick sensation is normal in the lower extremities, Pt denies, anesthesia, burning, paresthesia, tingling, B/L.?DEEP TENDON REFLEXES:?Achilles, 2/4, B/L.?Vascular: ?DP PULSES (B):?3/4, B/L.?PT PULSES (B):?3/4, B/L.?CAPILLARY FILL TIME:?immediate, all digits, B/L.?TROPHIC CONDITION-TEXTURE/ELASTICITY/TURGOR/HAIR GROWTH (B):?normal, B/L.?TEMPERTURE GRADIENT (C):?warm to cool, proximal to distal, B/L.?PIGMENTATION:?normal, B/L.?EDEMA (C):?absent, B/L.?Dermatologic: ?SKIN FINDINGS:?Skin exam reveals normal texture, elasticity, and turgor. There are no masses. The interspaces are clear.?Orthopedic: ?MUSCLE STRENGTH:?5/5 all groups in a symmetrical fashion , B/L.? Assessment: * Assessment: 1.?Pain in left toe(s) - M79 .675???2.?Onychomycosis - B35.1 (Primary)???Specify :Acute problem, Uncomplicated (3) Rx Management (4)???3.?Ingrown nail - L60.0???Specify :?Lateral nail border,?T5??? Plan: * Treatment: 2.?Ingrown nail?Procedure: [id number] * Procedures:?Matricectomy (OP NOTE):?Location?Lateral nail border,?T5.?Consent?The patient was brought to the examination room and placed on the table in a supine position. The pre/dimple/postoperative course, risks, complications and alternatives were discussed, understood and accepted by the patient. No guarantees were given regarding the surgical outcome.?Procedure?A digital prep with alcohol or betadine was performed. 3cc of 1 percent ?Xylocaine Plain local anesthetic was administered to the toe via digital block utilizing aseptic technique. A digital touriquet was applied. The affected toenail portion was undermined, incised and resected to the eponychium and matrix. It was noted to be significantly incurvated and hypertrophied. The nailbed and matrix were curetted and the nail groove, bed and matrix were cauterized with Phenol, 3 applications of 30 seconds each from a cotton tip applicator, no underling bone was identified. The surrounding skin was protected from the Phenol with Bacitracin ointment. The tourniquet was released and capillary fill time was intact to the digit. A sterile Bacitracin dressing was applied .?Disposition?Disposition: The patient tolerated the procedure and anesthesia well and left in good condition, alert, oriented and stable in no acute distress. Local wound care instructions were discussed and dispensed. There were no complications and the prognosis is favorable, Recommended alternating/staggering Tylenol XS 2 tabs and Motrin 600mg q 6 hrs ea for discomfort, Rx narcotic postop pain meds were deferred.? * Procedure Codes:?57884 REMOV AL OF NAIL BED, Modifiers: T5 * Preventive Medicine:? ??Counseling:?Discussion:?-03: Office or other outpatient visit for the evaluation and management of a new patient, which required a medically appropriate history and/or examination and LOW level of DECISION MAKING for: 1 STABLE ACUTE UNCOMPLICATED PROBLEM, 2 OR MORE MINOR PROBLEMS, OR 1 STABLE CHRONIC PROBLEM, THAT POSE(S) A LOW RISK FOR MORBIDITY/MORTALITY. The visit on the day of the encounter encompassed interpreting the data and educating the patient as to the nature of their condition, treatment options available according to their individual PMH, meds, allergies, and overall health/living conditions, as well as any potential risks or complications that may occur from a failure to adhere to, and participate in, the recommended course of therapy. The discussion included a complete verbal, and/or written explanation of the examination results, any x-rays taken, the proposed diagnosis, and outline of the treatment plan. A schedule for future care needs was also explained. The patient verbalized an understanding of the instructions at this time and agreed to be an active participant in their treatment. If the patient should think of any questions or concerns after the visit, I have encouraged the patient to call the office.?Fungal Nail Counseling:?The patient was counseled on the diagnosis, potential etiologies (including, but not limited to, environmental factors, genetic, immune deficiency), and the multiple treatment options for Onychomycosis. We discussed the risks and benefits of each option from performing no treatment, to ultraviolet light shoe treatment, to laser nail treatment, to applying topical antifungals, to taking oral antifungal medication, to surgical removal of the involved nail(s) with or without performing a matricectomy, or any combination thereof. We discussed the advantages and disadvantages of each of possible treatment and importance for adherence to all the recommended therapies for optimum success. This includes the necessity for weekly emery board self nail home debridements, and control the nail and skin environment as much as possible by only using a fresh, dry pair of shoes/socks each day, as well as keeping the skin as dry as possible through the use of sprays/powders if necessary. The patient was instructed to discard the emery board after use to prevent reinfection of the involved nail(s). We discussed the mycological and visual clinical effectiveness of topical vs oral antifungal treatments as well as each ones potential side effects and/or any patient- specific medication interactions. We discussed the reasons behind the important requirement of regular liver function testing with oral antifungal therapy for safety. Patient questions regarding use, dosage, successful outcomes, blood tests, and possible pharmaceutical interactions were reviewed and the patient verbalized that all answers were clearly understood, The patient presently prefers topical treatment, Ciclopirox 0.77 gel was Rxed. Apply as directed to nails twice daily.? ??Screening/Special Tests:?Fall Risk?Screening:?No falls in the past year ?FALLS: Screening for Future Fall Risk?Have you had any falls with injury in the past year??No * Follow Up:?3-4 Weeks * Images: * Sign off status: Completed true * Provider:?Misbah Rutherford DPM Date:?2024 Generated for Ulysses brito/Katarina/Kenny on:?06/18/2024 04:28 PM EDT History and Physical Notes * HPI (History of Present Illness) Category Sub-Category Detail Notes Category Not es Ingrown toenail Duration: several years Location: Great toe, Right prince t Treatments: self treatment - wou ld like something more permanent done today Painful Nails Aggravated by: shoegear causing difficul ty standing/walking Course: worse Duration: several months Location: Great toe, 2nd toe, Left foot Nature: aching, tender, disc olored, thick Treatments: none Examination Category Sub-Category Detail Notes Category Not es Ingrown Nail INSPECTION: Reveals incurvat ion, pain on palpation, groove hypertrophy, Lateral nail border, T5 Neurological SENSORY: Neurological exa m reveals intact sensorium, pain sensation normal, vibration sensation intact, pinprick sensation is normal in the lower extremities, Pt denies, anesthesia, burning, paresthesia, tingling, B/L DEEP TENDON REFLEXES: Achilles, 2/4, B/L Dermatologic SKIN FINDINGS: Skin exam reveal s normal texture, elasticity, and turgor. There are no masses. The interspaces are clear Orthopedic MUSCLE STRENGTH: 5/5 all groups in a symm etrical fashion , B/L General Examination GENERAL APPEARANCE: Reveals a pleasant, alert, well- nourished, well-developed, well hydrated individual, who demonstrates proper attention to hygiene/body habitus, and is in no acute distress, Pt serves as own historian for office visit today ORIENTED: person, place, and t seema Vascular DP PULSES (B): 3/4, B/L PT PULSES (B): 3/4, B/L CAPILLARY FILL TIME: immediate, all digi ts, B/L TEMPERTURE GRADIENT (C): warm to cool, p roximal to distal, B/L TROPHIC CONDITION-TEXTURE/ELASTICITY/TURGOR/HAIR GROWTH (B): normal, B/L EDEMA (C): absent, B/L PIGMENTATION: normal, B/L Nails NAILS are: Elongated, overg rown, dystrophic, lytic, greater than 3mm thick, discolored and friable with crumbly malodorous subungual debris, with pain on palpation, TA, T1
--- OUTSIDE RECORDS SUMMARY | 2024-06-18 16:28 | XMS_ITS ---
Author Organization [facility] Address [address] [place] [address] Care Team Providers Care Lyric Writer Name Role Phone Nael Bedolla Primary Care Provider Unavailab Misbah Cuellar Unavailable [phone] Encounters Encounter Location Date Provider Diagnosis [address] [phone] 05/19/2024 Misbah Rutherford Plan Of Treatment Next Appt Details Provider Name:Misbah Rutherford , 08/18/2024 03:30:00 PM, [address] [place] [address], [phone], Progress Notes * Jorge SALCIDO SrDOB:04/1959 (64 yo M)Acc No.[id number]:05/19/2024 Progress Notes Patient:?Jorge SALCIDO Provider:?Misbah Rutherford DPM :1960???Age:64 Y???Sex:Male Adama e:05/19/2024 Address:[address] [place], [place] [id number] Pcp:Nael Bedolla Subjective: * Chief Complaints: * ??? * Medical History:? Objective: * Vitals:? Assessment: Plan: * Treatment: * Images: * The named appointment provid er may or may not be the originator of this progress note, and it is not deemed complete until electronically signed by the appointment provider. Sign off status: Pending * Provider:Benito Rutherford DPM Date:?2024 Generated for Ulysses brito/Katarina/Kenny on:?06/18/2024 04:28 PM EDT
--- OUTSIDE RECORDS SUMMARY | 2024-06-18 16:29 | XMS_ITS ---
Author Organization [facility] Address [address] [facility] [place] [address] Care Team Providers Care Electric Stove Mechanic Name Role Phone Nael Bedolla Primary Care Provider Unavailab Misbah Cuellar Unavailable [phone] Allergies No Known Allergies REASON FOR VISIT Open sore - Toe, Fungal Nails Medications Medication SIG (Take, Route, Frequency, Duration) Notes Start Date End Date Status Omeprazole 40 MG TAKE 1 CAPSULE BY MO UT EVERY DAY. Oral for 90 Days Active Linzess 145 MCG TAKE 1 CAPSULE BY MO UT EVERY DAY Oral for 90 Days Active Amoxicillin 500 MG Oral for 7 Days Not-Taking Atorvastatin Calcium 80 MG TAKE 1 TABLET BY MOUTH EVERY DAY Oral for 90 Days Active Ciclopirox 0.77 % 1 application Externally Once a day for 30 days Active Citalopram Hydrobromide 20 MG TAKE 1 TABLET BY MOUTH EVERY DAY Oral for 90 Days Active Fluticasone Propionate 50 MCG/ACT USE 2 SPRAYS IN EACH NOSTRIL EVERY DAY Nasal for 30 Days Active Fiber Therapy 500 MG 2 tablets with a fu ll glass of water as needed Orally Six times a day Active Multivitamin - 1 tablet Orally Once a day Active Allergy Active Social History Tobacco Use: Social History Observation Description Date Details (start date - stop date) Never Smoker NA - NA Tobacco use other than smoking: Question Answer Notes Are you an other tobacco user? No Tobacco Control (Standard) Question Answer Notes Tobacco use: Nonsmoker Additional Findings: Tobacco non-user Current no nsmoker Vital Signs Height 5ft 6in in 05/21/2024 Weight 160 lbs 05/21/2024 BMI 25.82 kg/m2 05/21/2024 Blood pressure systolic 127 mm Hg 05/22/19 25 Blood pressure diastolic 63 mm Hg 025 Procedures Procedure Date Ordered Date Performed Result Body Sit e 08219-VKXCKII SKIN/TISSUE 05/21/2024 N/A Encounters Encounter Location Date Provider Diagnosis [facility] [place] [address] [place] [address] 05/21/2024 Misbah Rutherford Skin ulcer of toe of right foot with fat layer exposed L97.512 ; Pain in left toe(s) M79.675 and Onychomycosis B35.1 Assessments Encounter Date Diagnosis (ICD Code) Assessment Notes Treatment Notes Treatment Clinical Notes Section Notes 05/21/2024 Skin ulcer of toe of right foot with fat layer exposed (ICD-10 - L97.512) Patient Educated with: WOUND CARE INSTRUCTIONS.p df (WOUND CARE INSTRUCTIONS.p df) 05/21/2024 Pain in left toe(s) (ICD-10 - M79.675) 05/21/2024 Onychomycosis (ICD-10 - B35.1) 05/21/2024 Other Plan Of Treatment Medication Medication Name Sig Start Date Stop Date Notes Ciclopirox 0.77 % 1 application After School Teacher ally Once a day for 30 days Treatment Notes Assessment Notes Skin ulcer of toe of right f oot with fat layer exposed Patient Educated with: WOUND CARE INSTRUCTIONS.pdf (WOUND CARE INSTRUCTIONS.pdf) Pending Test Test Name Order Date 71653-PKJKPQX SKIN/TISSUE 05/21/2024 Next Appt Details Follow Up: 2 Months, Reason: Provider Name:Misbah Rutherford , 08/18/2024 03:30:00 PM, [address] [address], [place], [address], Procedure Notes * Category Sub-Category Detail Notes Debride skin and subQ Open wound Physician of record performed open wound selective debridement of devitalized necrotic/nonviable soft tissue, fibrin, exudate, epidermis, dermis, thru skin and subcutaneous fat tissue, first 20 sq cm or less, using sharp dissection with sterile 15 blade, and/or tissue nippers. ANESTHESIA- was accomplished TOPICALLY with Lidocaine Hydrochloride Jelly 2 percent, Sterile antibiotic dressing applied. Hemostasis was controlled through direct pressure. Post debridement measurements: 8mm x 4mm x 3mm. Character of the wound post debriement is stable (22167) Progress Notes * Jorge SALCIDO SrDOB:04/1959 (64 yo M)Acc No.[id number]:05/21/2024 Progress Notes Patient:?Jorge SALCIDO r Provider:?Misbah Rutherford DPM :1960???Age:64 Y???Sex:Male Adama e:05/21/2024 Address:[address] [place], [place] [id number] Pcp:Nael Bedolla Subjective: * Chief Complaints: * ???Open sore - ToeFungal Jennifer ls * HPI: ???Skin problems:?Nature:?Open sore.?Treatments:?Topical abx, soaks.?Painful Nails:?Nature:?aching, tender, discolored, thick.?Location:?Great toe, 2nd toe, Left foot.?Aggravated by:?shoegear causing difficulty standing/walking.?Treatments:?Ciclopirox topical gel, since, ( ), denies any adverse side effects to medication, (i.e. adjacent periungual skin irritation, inflammation, erosion).? * ROS:?General/Constitutional:?Nausea?denies.?Vomiting?denies.?Hunger Thirst?denies.?Loss appetite?denies.?Chills?denies.?Fatigue?denies.?Fever?denies.?Night Sweats?denies.?Unexplained weight loss?denies.?Unexplained [...] trouble?denies.?Confusion?denies.?Fainting/blackouts?denies.?Tingling?denies.?Tr emors?denies.? * Medical History:? * Surgical History:?[facility]- bone spur 2024foot surgery * Hospitalization/Major Diagno stic Procedure:?No Hospitalization History. * Family History:?Mother: dece ased, diagnosed with Other malignant neoplasm of unspecified site.?Father: alive, diagnosed with Unspecified essential hypertension, Unspecified heart disease, Unspecified cerebral artery occlusion with cerebral infarction.?Siblings: osteoarthritis, Plantar Fasciitis.? * Social History:?Tobacco Use:?Tobacco use other than smoking?Are you an other tobacco user??No ?Tobacco Control (Standard)?Tobacco use:?Nonsmoker ?Additional Findings: Tobacco non-user?Current nonsmoker ???Drugs/Alcohol:?Drugs?Have you used drugs other than those for medical reasons in the past 12 months??No ???Miscellaneous:?Caffeine: yes, frequency:. ?Children: yes. ?Exercise: no. ?Marital status: . 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 * Medications:?TakingAllergy M ultivitamin - Tablet 1 tablet Orally Once a day Fiber Therapy 500 MG Tablet 2 tablets with a full glass of water as needed Orally Six times a day Fluticasone Propionate 50 MCG/ACT Suspension USE 2 [...] 1 TABLET BY MOUTH EVERY DAY Oral Ciclopirox 0.77 % Gel 1 application Externally Once a day Taking Allergy Taking Multivitamin - Tablet 1 tablet Orally Once a day Taking Fiber Therapy 500 MG Tablet 2 tablets with a full glass of water as needed Orally Six times a day Taking Fluticasone Propionate 50 MCG/ACT Suspension USE [...] TABLET BY MOUTH EVERY DAY Oral Taking Ciclopirox 0.77 % Gel 1 application Externally Once a day Not-Taking/PRNAmoxicillin 500 MG Tablet Oral Medication List reviewed and reconciled with the patientNot-Taking/PRN Amoxicillin 500 MG Tablet Oral Medication List reviewed and reconciled with the patient * Allergies:?N.K.D.A.yes[Aller gies Verified] Objective: * Vitals:?Ht: 5ft 6in, Wt:160, BMI:25.82, Shoe size: 8.5, BP:127/63mm Hg, Ht-cm: 167.64 cm, Wt-k.58 kg. * Examination: ???Dermatologic: ?ULCER:? LOCATION, Dorsal,T5, SIZE, 7mm X 3mm X 2-3mm, BASE, fibro- granular, RIM, hyperkeratotic, UNDERMINING, mild, TRACKING, Sub Q with Fat layer exposed, DRAINAGE, serosanguineous, moderate, NECROTIC TISSUE, loosely-adherent, yellow slough, MALODOR, absent, CALOR, trace, ERYTHEMA, trace.?Nails: ?NAILS are:?Elongated, overgrown, dystrophic, lytic, greater than 3mm thick, discolored and friable with crumbly malodorous subungual debris, with pain on palpation, TA, T1.? Assessment: * Assessment: 1.?Pain in left toe(s) - M79 .675???2.?Skin ulcer of toe of right foot with fat layer exposed - L97.512 (Primary)???3.?Onychomycosis - B35.1???Specify :Acute problem, Uncomplicated (3) Rx Management (4)??? Plan: * Treatment: 2.?Onychomycosis? Start Ciclopirox Gel, 0.77 %, 1 application, Externally, Once a day, 30 days, 60, Refills 6.?? * Procedures:?Debride skin and subQ:?Open wound?Physician of record performed open wound selective debridement of devitalized necrotic/nonviable soft tissue, fibrin, exudate, epidermis, dermis, thru skin and subcutaneous fat tissue, first 20 sq cm or less, using sharp dissection with sterile 15 blade, and/or tissue nippers. ANESTHESIA- was accomplished TOPICALLY with Lidocaine Hydrochloride Jelly 2 percent, Sterile antibiotic dressing applied. Hemostasis was controlled through direct pressure. Post debridement measurements: 8mm x 4mm x 3mm. Character of the wound post debriement is stable (94455).? * Procedure Codes:?37128 DEBRI DE SKIN/TISSUE * Preventive Medicine:? ??Counseling:?Discussion:?-13: Office or other outpatient visit for the evaluation and management of an established patient, which required a medically appropriate history [...] were clearly understood, The patient presently prefers to cont topical treatment, Ciclopirox 0.77 gel was Rxed. Apply as directed to nails twice daily, Performance of this nail treatment by a nonprofessional would put this patients foot and overall health at risk. Therefore, debridement to affected nail(s), as described in exam, was performed exclusively by the physician of record to reduce/remove overall nail length, girth, thickness, subungual debris, and necrotic tissue, by manual and/or electrical means through the use of a nail nipper and/or dremel-type concrete wall grinder operator, to a more viable healthy nail plate or bed tissue. Silver nitrate used for any petechial bleeding as necessary.?Ulcer:?A detailed plan of care was reviewed with the patient. We emphasized the fact that the patient takes on an active participating role in the treatment process and emphasized to them that they are an included, valued, and important member of the wound healing team in order to reach an expedient successful outcome. The patient agreed to follow their medically recommended diet while increasing their protein intake if safely able to do so, maintain proper bodily hydaration, abide by weight-bearing restrictions at all times, quit all current smoking habits if any, and diligently follow any/all dressing change instructions. It was clearly made known to the patient that if they fail to do their part, they will likely extend their course of treatment as well as possibly increase their risk of adverse events including amputation. The patient was instructed on importance of proper wound care consisting of pressure reduction, and proper maintainance of a moist wound environment. The patient is to cleanse the wound with warm soapy water/peroxide/saline, or betadine BID based on product availability. The patient is to apply ( Neosporin, Polysporin, or Triple, ) Antibiotic to the wound and cover with a DSD as directed. The patient was instructed to change dressings according to orders, or PRN saturation, leaks. The patient was instructed to monitor and report any signs or symptoms of infection or any untoward reactions. Precautions Taken: Offloading/Pressure reduction via rest/ limited activity to essential to daily life only, shoe modification, accommodative padding, sharp debridement, and take/apply medication as directed. THE GOALS of wound debridement to remove devitilized tissue, decrease risk for infection, promote wound healing and prevent further complication were discussed/reviewed. Debridement frequency as indicated, Given recent successful results to treatment, The patient is to cont the local wound care as directed till completely healed.? ??Screening/Special Tests:?Fall Risk?Screening:?No falls in the past year ?FALLS: Screening for Future Fall Risk?Have you had any falls with injury in the past year??No * Follow Up:?2 Months * Images: * Sign off status: Completed true * Provider:?Misbah Rutherford DPM Date:?2024 Generated for Ulysses brito/Katarina/eTransmitting on:?06/18/2024 04:28 PM EDT History and Physical Notes * HPI (History of Present Illness) Category Sub-Category Detail Notes Category Not es Painful Nails Aggravated by: shoegear causing difficulty standing/walking Location: Great toe, 2nd toe, Left foot Nature: aching, tender, disc olored, thick Treatments: Ciclopirox topical g el, since, ( ), denies any adverse side effects to medication, (i.e. adjacent periungual skin irritation, inflammation, erosion) Skin problems Nature: Open sore Treatments: Topical abx, soaks Examination Category Sub-Category Detail Notes Category Not es Dermatologic ULCER: LOCATION, Dorsal ,T5, SIZE, 7mm X 3mm X 2-3mm, BASE, fibro-granular, RIM, hyperkeratotic, UNDERMINING, mild, TRACKING, Sub Q with Fat layer exposed, DRAINAGE, serosanguineous, moderate, NECROTIC TISSUE, loosely-adherent, yellow slough, MALODOR, absent, CALOR, trace, ERYTHEMA, trace Nails NAILS are: Elongated, overg rown, dystrophic, lytic, greater than 3mm thick, discolored and friable with crumbly malodorous subungual debris, with pain on palpation, TA, T1
--- OUTSIDE RECORDS SUMMARY | 2024-06-18 16:29 | XMS_ITS | Patient Health Record ---
Author Organization [facility] Address [address] [place] [address] Care Team Providers Care Oracle Adf Developer Name Role Phone Nael Bedolla Primary Care Provider Unavailab Misbah Cuellar Unavailable [phone] Allergies No Known Allergies Reason For Referral No Information Medications Medication SIG (Take, Route, Frequency, Duration) Notes Start Date End Date Status Omeprazole 40 MG TAKE 1 CAPSULE BY MO [facility] EVERY DAY. Oral for 90 Days Active Linzess 145 MCG TAKE 1 CAPSULE BY MO UT EVERY DAY Oral for 90 Days Active Citalopram Hydrobromide 20 MG TAKE 1 TABLET BY MOUTH EVERY DAY Oral for 90 Days Active Fluticasone Propionate 50 MCG/ACT USE 2 SPRAYS IN EACH NOSTRIL EVERY DAY Nasal for 30 Days Active Amoxicillin 500 MG Oral for 7 Days Not-Taking Atorvastatin Calcium 80 MG TAKE 1 TABLET BY MOUTH EVERY DAY Oral for 90 Days Active Fiber Therapy 500 MG 2 tablets with a fu ll glass of water as needed Orally Six times a day Active Multivitamin - 1 tablet Orally Once a day Active Allergy Active Ciclopirox 0.77 % 1 application Externally Once a day for 30 days Active Social History Tobacco Use: Social History [...] Status W/U Status Risk Notes Problem Onychomycosis ([id number]) Onychomycosis (B35.1) Active confirmed Vital Signs Blood pressure diastolic 63 mm Hg 05/21/2024 Height 5ft 6in in 05/21/2024 Blood pressure systolic 127 mm Hg 05/21/2024 Weight 160 lbs 05/21/2024 BMI 25.82 kg/m2 05/21/2024 Procedures Procedure Date Ordered Date Performed Result Body Sit e 73321-HJU 04/28/2024 N/A 75656-[id number] SKIN/TISSUE 05/21/2024 N/A Encounters Encounter Location Date Provider Diagnosis [facility] [address] 04/28/2024 Misbah Krish Onychomycosis B35.1 ; Pain in left toe(s) M79.675 and Ingrown nail L60.0 [facility] [address] 05/21/2024 Misbah Krish Skin ulcer of toe of right foot with fat layer exposed L97.512 ; Pain in left toe(s) M79.675 and Onychomycosis B35.1 Assessments Encounter Date Diagnosis (ICD Code) Assessment Notes Treatment Notes Treatment Clinical Notes Section Notes 04/28/2024 Pain in left toe(s) (ICD-10 - M79.675) 04/28/2024 Onychomycosis (ICD-10 - B35.1) 05/21/2024 Pain in left toe(s) (ICD-10 - M79.675) 04/28/2024 Ingrown nail (ICD-10 - L60.0) 05/21/2024 Skin ulcer of toe of right foot with fat layer exposed (ICD-10 - L97.512) Patient Educated with: WOUND CARE INSTRUCTIONS.p df (WOUND CARE INSTRUCTIONS.p df) 05/21/2024 Onychomycosis (ICD-10 - B35.1) 05/21/2024 Other Plan Of Treatment Pending Test Test Name Order Date [id number] 04/28/2024 [id number] SKIN/TISSUE 05/21/2024 Next Appt Details Provider Name:Misbah Rutherford , 08/18/2024 03:30:00 PM, [address] [facility], [address], [place], [address], Insurance Providers Payer Name Payer Address Payer Phone Subscriber Number Group Number Insured Name Patient Relationship to Insured Coverage Start Date Coverage End Date [facility] [address] [place] [address] [phone] [id number] Jorge Lima Self - patient is the insured Medical (General) History Medical History History ICD Code Arthritis Back,Hip,and Knee pain CAD (Cholesterol) Depression Diverticulosis Headaches/Migraines Psoriasis/eczema Reflux ( GERD) sinusitis Measles Mumps Chicken pox Surgical History Surgery Date(Month/Year) [facility]- bone spur 2024 foot surgery
--- NOTE | 2024-06-18 16:53 | MHC.AU.HA3 ---
Hearing Instrument Follow-Up- Binaural Date of Visit: 06/18/24 Right Ear: Make, Model, Color, Serial Number: [id number] Superintendent Warehouse Repair Warranty: 03/23/2021 [employer] Ware[employer] Loss and Damage Warranty: 03/23/2021 [facility] Service Plan: exp Battery Size: 13 Bulk Mail Technician/Slim Tube: 2 Earmold/Dome/CShell/SlimTip:Slim Tip SN: [id number] Type of Wax Guard: Dispensed By: [facility] Date of Fittin01/02/2018 Left Ear: Make, Model, Color, Serial Number: [id number] Superintendent Warehouse Repair Warranty: 03/23/2021 Superintendent Warehouse Loss and Damage Warranty: 03/23/2021 [facility] Service Plan: exp Battery Size: 13 Bulk Mail Technician/Slim Tube: 2 Earmold/Dome/CShell/SlimTip: Slim Tip SN: [id number] Type of Wax Guard: Dispensed By: [facility] Date of Fittin01/02/2018 Follow-Up Summary: Jorge reports getting a squeal from the right hearing aid. Found both aids with crimped slim tubes. Cleaned aids and slim tips. Had to replace slim tip gaskets. Replaced slim tubes. Listening check positive. Jorge reports improvement. Recommendations: Recommendations: Hearing instrument follow-up or maintenance as needed. Diagnosis Code(s): Primary Diagnosis: H90.3 Bilateral Sensorineural Hearing Loss Signature: Provider: Jamaal Cummins, CCC-A
== END 2024-06-18 15:37 | disposition home or self-care (01) ==
LOC: HO.HAP 15:36
PROVIDERS: Visit Provider Physician Assistant
DX: Z46.1 Encounter for fitting and adjustment of hearing aid (principal); H90.3 Sensorineural hearing loss, bilateral
CPT/HCPCS: 92593

== ENCOUNTER 2024-07-29 14:25 | Outpatient (AMB) | payer OTHER, SELFPAY ==
[2024-07-29 14:39] VITALS: BP 120/80; PULSE 59; BMI 25.6
--- NOTE | 2024-07-29 14:39 | MHC.OFFVIS ---
Vital Signs 07/29/24 14:39 Height 5 ft 6 in Weight 158 lb 11.725 oz BMI 25.6 BP 120/80 Blood Pressure Location Lt brachial Pulse 59 Intake Visit Reasons: 1 year follow up Intake Note: 1 year follow-up with ekg feeling good Gas Distribution Supervisor Required: No Allergies Seasonal Allergies Allergy (Intermediate, Verified 04/14/24 16:37) Sneezing Medication List - Last Reconciled 07/29/24 by Jose Oh MD atorvastatin 80 mg PO DAILY citalopram 20 mg PO DAILY 90 days fluticasone propionate 50 mcg/actuation 2 sprays intranasal DAILY loratadine (Claritin) 10 mg PO DAILY methylcellulose (laxative) (Citrucel) 500 mg PO DAILY omeprazole 40 mg PO DAILY 90 days sennosides (Natural Senna Laxative) 17.2 mg (2 x 8.6 mg) PO BEDTIME HPI Comments Details: Jorge comes for follow-up. Last year he had LDL cholesterol which was not well optimized, not sure if he was taking full-dose statin therapy at that time. Very unclear. He is a vague historian. He complains of precordial chest pain when he over exerts himself. He said he does heavy lifting and pushing laundry and at that time he gets chest discomfort but the discomfort can last. He said he had chest discomfort since yesterday in his present today in his somewhat reproducible to touch although he is very vague about it. He has EKGs today shows no ischemic changes. He comes for follow-up today. No prolonged palpitation irregular heartbeat. No lightheadedness, syncope. No heart failure symptoms. [facility] Medical History Tubular adenoma Diverticulosis Hyperlipidemia PVC (premature ventricular contraction) Surgical History History of tooth extraction Hx of colonoscopy History of foot surgery Family History Father CAD (coronary artery disease) Mother Cancer Sister Colon polyps Social History Housing: Apartment Alcohol intake: current Alcohol intake frequency: holidays/special occasions only Patient Tobacco Use Status: Never used Tobacco e-Cigarette/Vaping Use: Never Used Second Hand Smoke Exposure: No service: No Current occupational status: employed Current occupation: [employer] Cognitive needs: No Hearing needs: Yes (Pt has hearing aids) Vision needs: Yes (Glasses) Review of Systems Const Denies chills, Denies fatigue, Denies fever(s), Denies frequent falls, Denies weakness, Denies weight gain and Denies weight loss ENT Denies dizziness Card Denies chest pain, Denies leg edema, Denies lightheadedness, Denies palpitations, Denies dyspnea, Denies dyspnea on exertion, Denies orthopnea and Denies other (loss of consciousness) Resp Denies cough, Denies dyspnea and Denies dyspnea on exertion GI Denies hematochezia and Denies change in stool character Musc Denies abnormal gait, Denies muscle weakness, Denies numbness, Denies radiating pain into limb and Denies tingling Neuro Denies abnormal gait, Denies dizziness, Denies frequent falls, Denies numbness, Denies tingling and Denies weakness Endo Denies fatigue and Denies palpitations Physical Exam Vital Signs: Last Vital Signs Pulse 59 07/29/24 14:39 BP 120/80 07/29/24 14:39 BMI result Body Mass Index 25.6 Const General: cooperative, comfortable, alert and awake Nutritional Appearance: average body habitus Orientation/consciousness: patient oriented x3 Limitations: no limitations Neck Neck: Yes trachea midline, Yes supple and Yes no JVD Carotids: no bruits Resp Effort & Inspection: normal respiratory effort Auscultation: clear to auscultation bilaterally Cardio Jugular venous distension: no JVD Palpation: normal PMI Rate: regular rate Rhythm: regular rhythm Heart sounds: S1 normal heart sound present and S2 normal heart sound present GI Auscultation: normal bowel sounds Skin General skin exam: no rashes or lesions noted Neuro General: patient oriented x3 and no focal motor deficits Extrem General: Yes no clubbing, cyanosis or edema Psych Appearance: grossly normal Office Procedures EKG Details: EKG shows normal sinus rhythm with PACs with incomplete right bundle-branch block with suggestive of right atrial enlargement [id number], Complete Assessment & Plan Assessment & Plan (1) Atypical chest pain: Code(s): R07.89 - Other chest pain Plan: Atypical chest pain this elderly gentleman with history of hyperlipidemia with evidence of atherosclerotic disease in multiple vascular beds. Need to rule out myocardial ischemia. Would suggest a stress echocardiogram to assess for the same. This will be scheduled in near future to further assess for myocardial ischemia and this was discussed with him. Although he has chest pain appears to be probably musculoskeletal in nature. Advise gradual stretching exercise and muscle strengthening exercises. (2) Hyperlipidemia: Code(s): E78.5 - Hyperlipidemia, unspecified Category: Medical Qualifiers: Hyperlipidemia type: mixed hyperlipidemia Qualified Code(s): E78.2 - Mixed hyperlipidemia Plan: Hyperlipidemia with evidence of atherosclerotic disease in multiple vascular beds. Continue high-intensity statin therapy. Recommend to follow-up lipid panel in near future. If continues to have significant LDL will add ezetimibe therapy to the regimen. Low-dose aspirin therapy is recommended. (3) PVC (premature ventricular contraction): Code(s): I49.3 - Ventricular premature depolarization Category: Medical Plan: Cardiac arrhythmias with prior PVCs and currently noted to have PACs. Advised stress mitigation strategies. Advise still avoid stimulants. No pharmacotherapy is recommended. Follow up in the clinic in 1 year's time, sooner p.r.n.. Thank you for allowing me to partake in his care Orders: Orders CA echo stress exercise Today R07.89 - Other chest pain Coding Level of Care Code Est Pt Level 4 (68685) Complex EM visit Add On G2211 Diagnoses Atypical chest pain R07.89 Mixed hyperlipidemia E78.2 Hyperlipidemia type: mixed hyperlipidemia PVC (premature ventricular contraction) I49.3 CPT Codes EKG - CPT: 57465-[id number], Complete ([id number])
--- OUTSIDE RECORDS SUMMARY | 2024-07-29 17:25 | XMS_ITS ---
Author Organization [facility] Address [address] [place] [address] Care Team Providers Care Assistant Product Manager Name Role Phone Nael Bedolla Primary Care Provider Unavailab Misbah Cuellar Unavailable [phone] Encounters Encounter Location Date Provider Diagnosis [address] [address] 05/19/2024 Misbah Rutherford Plan Of Treatment Next Appt Details Provider Name:Misbah Rutherford , 08/18/2024 03:30:00 PM, [address] [place] [address], [id number], Progress Notes * Jorge SALCIDO SrDOB:04/1959 (64 yo M)Acc No.[id number]:05/19/2024 Progress Notes Patient:?Jorge SALCIDO Provider:?Misbah Rutherford DPM :1960???Age:64 Y???Sex:Male Adama e:05/19/2024 Address:[address] [place], [place] [phone] Pcp:Nael Bedolla Subjective: * Chief Complaints: * ??? * Medical History:? Objective: * Vitals:? Assessment: Plan: * Treatment: * Images: * The named appointment provid er may or may not be the originator of this progress note, and it is not deemed complete until electronically signed by the appointment provider. Sign off status: Pending * Provider:Benito Rutherford DPM Date:?2024 Generated for Ulysses brito/Katarina/Kenny on:?07/29/2024 05:24 PM EDT
== END 2024-07-29 15:07 | disposition home or self-care (01) ==
LOC: HO.HCS 14:26
PROVIDERS: PCP Physician Assistant; Visit Provider Internal Medicine Cardiovascular Disease
DX: R07.89 Other chest pain (principal); E78.2 Mixed hyperlipidemia; I49.3 Ventricular premature depolarization
CPT/HCPCS: 93010; 99214

== ENCOUNTER → 2024-07-29 14:25 | Outpatient (BNVA) | payer OTHER, SELFPAY | PROVIDERS: PCP Physician Assistant; Visit Provider Internal Medicine Cardiovascular Disease | DX: R07.89 Other chest pain (principal) | CPT/HCPCS: 93005 ==

== ENCOUNTER 2024-08-01 13:37 | Outpatient (REF) | payer SELFPAY ==
--- OUTSIDE RECORDS SUMMARY | 2024-08-01 13:49 | XMS_ITS ---
Author Organization [facility] Address [address] [place] [address] Care Team Providers Care Air Breaker Operator Name Role Phone Nael Bedolla Primary Care Provider Unavailab Misbah Cuellar Unavailable [phone] Encounters Encounter Location Date Provider Diagnosis [address] [address] 05/19/2024 Misbah Rutherford Plan Of Treatment Next Appt Details Provider Name:Misbah Rutherford , 08/18/2024 03:30:00 PM, [address] [place] [address], [phone], Progress Notes * Jorge SALCIDO SrDOB:04/1959 (64 yo M)Acc No.[id number]:05/19/2024 Progress Notes Patient:?Jorge SALCIDO Provider:?Misbah Rutherford DPM :1960???Age:64 Y???Sex:Male Adama e:05/19/2024 Address:[address] [place], [place] [phone] Pcp:Nael Bedolla Subjective: * Chief Complaints: * ??? * Medical History:? Objective: * Vitals:? Assessment: Plan: * Treatment: * Images: * The named appointment provid er may or may not be the originator of this progress note, and it is not deemed complete until electronically signed by the appointment provider. Sign off status: Pending * Provider:Benito Rutherford DPM Date:?2024 Generated for Ulysses brito/Katarina/Kenny on:?08/01/2024 01:48 PM EDT
== END 2024-08-01 13:38 | disposition home or self-care (01) ==
LOC: HO.HAP 13:37
PROVIDERS: Visit Provider Physician Assistant
DX: Z46.1 Encounter for fitting and adjustment of hearing aid (principal); H90.3 Sensorineural hearing loss, bilateral
CPT/HCPCS: 92593

== ENCOUNTER → 2024-09-16 10:28 | Outpatient (REF) | payer OTHER, SELFPAY ==
--- OUTSIDE RECORDS SUMMARY | 2024-06-24 05:30 | XMS_ITS ---
Author Organization [facility] Address [address] [place] [address] Care Team Providers Care Rod Mill Tender Name Role Phone Nael Bedolla Primary Care Provider Unavailab Misbah Cuellar Unavailable [phone] Shea Rios Unavailable [phone] REASON FOR VISIT sooner appt Encounters Encounter Location Date Provider Diagnosis [facility] [address] [place] [address] 06/24/2024 Shea Rios Plan Of Treatment Next Appt Details Provider Name:Misbah Rutherford , 11/10/2024 03:30:00 PM, [address] [facility], [address], [place], [address], Progress Notes * Jorge SALCIDO SrDOB:04/1959 (64 yo M)Acc No.[id number]:06/24/2024 Progress Notes Patient: Junaid VELAJorge ARREAGA Sr Provider: Junaid Rios DPM :1960 A ge:64 Y S ex:Male Date:06/24/2024 Address:[address] [place], [place] [id number] Pcp:Nael Bedolla Subjective: * Chief Complaints: * [...] 06/24/2024 Generated for Ulysses brito/Katarina/Kenny on: 0 09/16/2024 11:26 AM EDT
--- NOTE | 2024-09-16 10:31 | CA_ITS ---
Acquisition Time: 2024-09-16 11:18:33 Total Exercise Time: 00:05:25 Test Indications: CHEST PAIN Medications: Protocol: BRIDGET Max HR: 173 BPM 110% of Pred: 156 BPM Max BP: 148/88 mmHG Max Work Load: 7.0 METS Exercise stress test with exercise 5 mins 25 secs of Bridget Protocol, achieving 99% MPHR, with reports of 5/10 left sided chest pressure that didnot change with exercise, with SOB, with isolated PACs and PVCs, with normotensive response to exercise. Without any EKG changes meeting criteria for ischemia. In recovery, breathing returned to baseline and chest pressure unchanged. Echo images obtained by tech at rest and post peak exercise. Definity contrast utilized. Test reviewed with Dr. Oh. Referred By: Jose Oh Electronically Signed By: Naveed Silvestre
--- OUTSIDE RECORDS SUMMARY | 2024-09-16 11:26 | XMS_ITS | Patient Health Record ---
Author Organization [facility] Address [address] [place] [address] Care Team Providers Care Rpg Programmer Analyst Name Role Phone Adams GUIDO, Shaun Primary Care Provider Andreas Ferraro [phone] Reason For Referral No Information Medications Medication SIG (Take, Route, Frequency, Duration) Notes Start Date End Date Status Simvastatin Active Problems Problem Type SNOMED Code ICD Code Onset Dates Problem Status W/U Status Risk Notes Problem Screening for malignant neoplasm of colon (867014218) Special screening for malignant neoplasms, colon (V76.51) Active confirmed Plan Of Treatment No Information Insurance Providers Payer Name Payer Address Payer Phone Subscriber Number Group Number Insured Name Patient Relationship to Insured Coverage Start Date Coverage End Date [facility] [address] [place] [address] [phone] [id number] ABIGAIL SALCIDO Self - patient is the insured Medical (General) History Medical History History ICD Code Denies NC,DM,CVA,Lung disease,renal dise ase Surgical History Surgery Date(Month/Year) eye surgery hernia
== END ==
LOC: HO.CARD 10:28
PROVIDERS: PCP Physician Assistant; Visit Provider Internal Medicine Cardiovascular Disease
DX: R07.89 Other chest pain (principal)
CPT/HCPCS: 93350; Q9957

== ENCOUNTER → 2024-09-16 10:31 | Outpatient (BNV) | payer OTHER, SELFPAY | PROVIDERS: PCP Physician Assistant | DX: I49.1 Atrial premature depolarization (principal); I49.3 Ventricular premature depolarization; R06.02 Shortness of breath | CPT/HCPCS: 93016; 93018; 93350; 93352 ==

== ENCOUNTER 2024-09-16 14:56 | Outpatient (REF) | payer SELFPAY ==
--- NOTE | 2024-09-16 17:00 | MHC.AU.HA3 ---
Hearing Instrument Follow-Up- Binaural Date of Visit: 09/16/24 Right Ear: Ottoniel, Model, Color, Serial Number: Le Sotelo [id number] SN: [id number] Color: Black Eyelet Machine Operator Repair Warranty: 03/23/2021 Eyelet Machine Operator Loss and Damage Warranty: 03/23/2021 Battery Size: 13 Seed Production Field Supervisor/Slim Tube: 2 slim tube Earmold/Dome/CShell/SlimTip:Slim Tip w/ canal janes SN: [id number] Dispensed By: [facility] Date of Fittin01/02/2018 Left Ear: Ottoniel, Model, Color, Serial Number: Le Sotelo [id number]-[id number] SN: [id number] Color: Black Eyelet Machine Operator Repair Warranty: 03/23/2021 Eyelet Machine Operator Loss and Damage Warranty: 03/23/2021 Battery Size: 13 Seed Production Field Supervisor/Slim Tube: 2 slim tube Earmold/Dome/CShell/SlimTip: Slim Tip w/ canal janes SN: [id number] Dispensed By: [facility] Date of Fittin01/02/2018 Follow-Up Summary: Jorge broke left slim tip. Reportedly put HAs on floor and accidently stepped on left one. Called [employer] - impression still on file, will order duplicate. Quoted $95.00 due at olive picker. Wax build up noted in left tubing - Replaced and added medium vented dome with retention tail to use on left LUA in meantime. Discussed new HAs given age of current pair - provided contact information for [employer]. Recommendations: Patient will be contacted when materials have arrived. Diagnosis Code(s): Primary Diagnosis: H90.3 Bilateral Sensorineural Hearing Loss Signature: Provider: Jamaal Arredondo, CCC-A
== END 2024-09-16 14:57 | disposition home or self-care (01) ==
LOC: HO.HAP 14:56
PROVIDERS: Visit Provider Physician Assistant
DX: Z13.89 Encounter for screening for other disorder (principal)

== ENCOUNTER 2024-10-13 15:05 | Outpatient (AMB) | payer OTHER, SELFPAY ==
--- OUTSIDE RECORDS SUMMARY | 2024-06-24 05:30 | XMS_ITS ---
Author Organization [facility] Address [address] [place] [address] Care Team Providers Care Security Monitor Name Role Phone Nael Bedolla Primary Care Provider Unavailab Misbah Cuellar Unavailable [phone] Shea Rios Unavailable [phone] REASON FOR VISIT sooner appt Encounters Encounter Location Date Provider Diagnosis [facility] [address] [place] [address] 06/24/2024 Shea Rios Plan Of Treatment Next Appt Details Provider Name:Misbah Rutherford , 11/10/2024 03:30:00 PM, [address] [facility], [address], [place], [address], Progress Notes * Jorge SALCIDO SrDOB:04/1959 (64 yo M)Acc No.[id number]:06/24/2024 Progress Notes Patient: Junaid VELAJorge ARREAGA Sr Provider: Junaid Rios DPM :1960 A ge:64 Y S ex:Male Date:06/24/2024 Address:[address] [place], [place] [id number] Pcp:Nael Bedolla Subjective: * Chief Complaints: * [...] 06/24/2024 Generated for Ulysses brito/Katarina/Kenny on: 0 10/13/2024 04:45 PM EDT
--- NOTE | 2024-10-13 15:44 | A.OFFPC_ITS ---
Vital Signs 10/13/24 15:45 Height 5 ft 6 in Weight 160 lb 2 oz BMI 25.8 BP 130/70 Blood Pressure Location Lt brachial Position Sitting Pulse 56 Pulse Source Pulse Oximeter Temp 97.5 F Temp Source Temporal Artery Scan Pulse Oximetry (%) 93 Oxygen Delivery Method Room Air Intake Visit Reasons: f/u HLD Intake Note: Patient is here to follow up on HLD. Radius Corner Machine Operator Required: No Roof Cement And Paint Maker: Not Required per policy Accompanied by: Self / Same As Patient Allergies Seasonal Allergies Allergy (Intermediate, Verified 10/13/24 15:53) Sneezing Medication List - Last Reconciled 10/13/24 by Nael Bedolla PA-C atorvastatin 80 mg PO DAILY citalopram 20 mg PO DAILY 90 days fluticasone propionate 50 mcg/actuation 2 sprays intranasal DAILY loratadine (Claritin) 10 mg PO DAILY methylcellulose (laxative) (Citrucel) 500 mg PO DAILY omeprazole 40 mg PO DAILY 90 days sennosides (Natural Senna Laxative) 17.2 mg (2 x 8.6 mg) PO BEDTIME Tobacco use date assessed: 10/13/24 Fall risk assessment: No Falls in past year Last assessed Fall Risk: 10/13/24 Dental Screening Dental Screen Date: 04/14/24 HPI f/u HLD HPI Details Patient is a 64-year-old here today for follow-up visit. ? Patient has a past medical history significant for hyperlipidemia, GERD, anxiety disorder, borderline high cholesterol. Concerns--> The chest pain episodes began recently and are sometimes associated with exertion, such as climbing stairs, but no ischemic changes were found on recent stress testing. The patient has a history of smoking, having quit several years ago, and there is a family history of COPD. -> The patient has a history of allergic contact dermatitis, particularly on the forehead, possibly related to glove use, and is being treated with a topical steroid cream. .. Hyperlipidemia: Continues on atorvastatin 80 mg, has been quite awhile since checking his lipid panel. He agrees on checking his fasting lipid panel in near future... .. Anxiety: Continues to use SSRI therapy with good effect on reducing his anxiety. No further reports a heart palpitations [facility] Medical History Tubular adenoma Diverticulosis Hyperlipidemia PVC (premature ventricular contraction) Surgical History History of tooth extraction Hx of colonoscopy History of foot surgery Family History Father CAD (coronary artery disease) Mother Cancer Sister Colon polyps Social History Housing: Apartment Alcohol intake: current Alcohol intake frequency: holidays/special occasions only Patient Tobacco Use Status: Never used Tobacco e-Cigarette/Vaping Use: Never Used Second Hand Smoke Exposure: No service: No Current occupational status: employed Current occupation: [employer] Cognitive needs: No Hearing needs: Yes (Pt has hearing aids) Vision needs: Yes (Glasses) Questionnaire Thrive Questionnaire Date Thrive assessed: 04/14/24 DELMA-7 AMB Questionnaire DELMA-7 Date DELMA - 7 assessed: 04/14/24 Source: Developed by Drs. Andreas Coronel, Africa Archer, Familia Stephens and colleagues, with an educational tacos from [employer]. Review of Systems Const Denies headache(s) Eyes Denies loss of vision ENT Denies vertigo, Denies dizziness, Denies headache(s) and Denies sore throat Card Reports chest pain, Denies leg edema and Denies lightheadedness Resp Denies cough, Denies hemoptysis and Denies wheezing GI Denies abdominal pain, Denies melena, Denies constipation, Reports dyspepsia, Reports heartburn, Denies diarrhea and Denies vomiting Denies dysuria, Denies urinary frequency and Denies urinary urgency Musc Denies arthralgias, Denies joint swelling, Denies numbness and Denies tingling Neuro Denies Abnormal speech present, Denies behavioral changes, Denies vertigo, Denies dizziness, Denies headache(s), Denies loss of vision, Denies memory loss, Denies numbness and Denies tingling Psych Denies anxiety, Denies behavioral changes, Denies depression, Denies memory loss and Denies panic attacks Dano/Lymph Denies easy bleeding and Denies easy bruising Aller/Immun Denies wheezing Physical exam (Primary Care) Vital Signs: Last Vital Signs Temp 97.5 F 10/13/24 15:45 Pulse 56 10/13/24 15:45 BP 130/70 10/13/24 15:45 Pulse Ox 93 10/13/24 15:45 Oxygen Delivery Method Room Air 10/13/24 15:45 BMI result Body Mass Index 25.8 Tobacco/Smoking Status: Tobacco use Status Tobacco use date assessed 10/13/24 10/13/24 15:51 Patient Tobacco Use Status Never used Tobacco 10/13/24 15:51 e-Cigarette/Vaping Use Never Used 10/13/24 15:51 Thrive Assessment: Date of Thrive Assessment Date Thrive assessed 04/14/24 10/13/24 15:51 Const General: healthy appearing, no acute distress, alert and awake Nutritional Appearance: well nourished Orientation/consciousness: oriented to person, oriented to place and oriented to time HENMT Ears: TM's normal bilaterally General nose exam: Normal nasal mucous membranes and turbinates present Eyes Conjunctivae: conjunctivae normal Sclerae: sclerae normal Pupils: Equal, round and reactive pupils present Neck Neck: Yes no lymphadenopathy and Yes no JVD Thyroid: Thyroid normal Carotids: no bruits Resp Effort & Inspection: normal respiratory effort and not tachypneic Auscultation: no crackles, no rales, no rhonchi and no wheezes Cardio Rate: regular rate Rhythm: regular rhythm Heart sounds: no murmurs and normal S1 and S2 GI Palpation (GI): Soft to palpation, nontender, no hepatomegaly and no splenomegaly Auscultation: normal bowel sounds Skin General skin exam: no rashes or lesions noted and dry skin Neuro General: oriented to person, oriented to place and oriented to time Cranial nerves: Yes Equal, round and reactive pupils present Speech: No Abnormal speech present Gait exam (Neuro): Normal gait present Motor exam (neuro): no tremor noted Extrem Right upper extremity: full ROM Left upper extremity: full ROM Right lower extremity: full ROM; no edema Left lower extremity: full ROM; no edema Psych Mental Status: mental status grossly normal Speech and movement: Normal speech and movement present Affect: normal affect Attitude: cooperative Thought process: Normal thought process present Coding Level of Care Code Est Pt Level 4 (39476) Diagnoses Mixed hyperlipidemia E78.2 Hyperlipidemia type: mixed hyperlipidemia Facial rash R21 Former smoker Z87.891 Gastroesophageal reflux disease, unspecified whether esophagitis present K21.9 Esophagitis presence: esophagitis presence not specified Other chest pain R07.89 Chest pain type: other chest pain Assessment & Plan Assessment & Plan (1) Hyperlipidemia: Code(s): E78.5 - Hyperlipidemia, unspecified Category: Medical Qualifiers: Hyperlipidemia type: mixed hyperlipidemia Qualified Code(s): E78.2 - Mixed hyperlipidemia Plan: Patient continues on high dose statin therapy. Will recheck lipid panel to ensure appropriate total cholesterol and LDL. Goal LDL is to be below 130 (2) Facial rash: Code(s): R21 - Rash and other nonspecific skin eruption Category: Medical Plan: The patient is prescribed a topical steroid cream for application on the affected area of the forehead. (3) Former smoker: Code(s): Z87.891 - Personal history of nicotine dependence Category: Social Hx Plan: Patient reports being a former smoker from age 15 to age 60. He is interested in lung cancer screening program. (4) GERD (gastroesophageal reflux disease): Code(s): K21.9 - Gastro-esophageal reflux disease without esophagitis Category: Medical Qualifiers: Esophagitis presence: esophagitis presence not specified Qualified Code(s): K21.9 - Gastro-esophageal reflux disease without esophagitis Plan: Patient does use omeprazole 40 mg though feels it is not effective. He does report at times having heartburn and chest discomforts. Will trial famotidine 40 mg as alternative. Advised on keeping food diary and staying away from gastric irritants. (5) Chest pain: Code(s): R07.9 - Chest pain, unspecified Category: Medical Qualifiers: Chest pain type: other chest pain Qualified Code(s): R07.89 - Other chest pain Plan: Recent cardiac workup including stress testing was essentially normal.. The patient will undergo a pulmonary function test to assess for potential COPD, given the history of smoking and family history of COPD. Additionally, a lung cancer screening CT scan has been ordered due to the patient's smoking history. Orders: Orders PFT pulmonary function test 10/13/24 R06.02 - Shortness of breath, Z87.891 - Personal history of nicotine dependence Referrals Lung Cancer Screening Referral F17.200 - Nicotine dependence, unspecified, uncomplicated, Z87.891 - Personal history of nicotine dependence Medications: New famotidine 40 mg PO DAILY 90 tabs 1RF 90 days K21.9 - Gastro-esophageal reflux disease without esophagitis desonide 0.05% 1 appl topical DAILY 60 grams 0RF 4 weeks R21 - Rash and other nonspecific skin eruption Refilled methylcellulose (laxative) (Citrucel) take it with full glass of water 500 mg PO DAILY 30 tabs 2RF K59.00 - Constipation, unspecified sennosides (Natural Senna Laxative) 17.2 mg (2 x 8.6 mg) PO BEDTIME 60 tabs 3RF constipation K59.00 - Constipation, unspecified fluticasone propionate 50 mcg/actuation 2 sprays intranasal DAILY 16 grams 3RF E78.2 - Mixed hyperlipidemia citalopram 20 mg PO DAILY 90 tabs 3RF 90 days F41.1 - Generalized anxiety disorder On Hold omeprazole Hold Comment: Doctor's Order 40 mg PO DAILY 90 days 90 caps 0RF K21.9 - Gastro-esophageal reflux disease without esophagitis
[2024-10-13 15:45] VITALS: BP 130/70; PULSE 56; TEMP 36.4; O2SAT 93; BMI 25.8
--- OUTSIDE RECORDS SUMMARY | 2024-10-13 16:46 | XMS_ITS | Patient Health Record ---
Author Organization [facility] Address [address] [place] [address] Care Team Providers Care Police Liaison Name Role Phone Nael Bedolla Primary Care Provider Unavailab Misbah Cuellar Unavailable [phone] Shea Rios Unavailable [phone] Allergies No Known Allergies Reason For Referral No Information Medications Medication SIG (Take, Route, Frequency, Duration) Notes Start Date End Date Status Citalopram Hydrobromide 20 MG TAKE 1 TABLET BY MOUTH EVERY DAY Oral; Duration: 90 Days Active Fluticasone Propionate 50 MCG/ACT USE 2 SPRAYS IN EACH NOSTRIL EVERY DAY Nasal; Duration: 30 Days Active Fiber Therapy 500 MG 2 tablets with a fu ll glass of water as needed Orally Six times a day Active Multivitamin - 1 tablet Orally Once a day Active Allergy Active Amoxicillin 500 MG Oral; Duration: 7 Days Not-Taking Ciclopirox 0.77 % 1 application Externally Once a day; Duration: 30 days Active Atorvastatin Calcium 80 MG TAKE 1 TABLET BY MOUTH EVERY DAY Oral; Duration: 90 Days Active Omeprazole 40 MG TAKE 1 CAPSULE BY MO UT EVERY DAY. Oral; Duration: 90 Days Active Linzess 145 MCG TAKE 1 CAPSULE BY MO UTH EVERY DAY Oral; Duration: 90 Days Active Immunizations Vaccine Route Administration Date Status Comme nts Influenza Unknown 11/01/2023 Administered Social History Tobacco Use: Social History Observation [...] Status W/U Status Risk Notes Problem Onychomycosis (083675603) Onychomycosis (B35.1) Active confirmed Vital Signs Blood pressure diastolic 74 mm Hg 08/18/2024 Height 5ft 6in in 08/18/2024 Blood pressure systolic 126 mm Hg 08/18/2024 Weight 160 lbs 08/18/2024 BMI 25.82 kg/m2 08/18/2024 Procedures Procedure Date Ordered Date Performed Result Body Sit e 67433-NUC 04/28/2024 N/A [id number] SKIN/TISSUE 05/21/2024 N/A Encounters Encounter Location Date Provider Diagnosis [facility] [address] 04/28/2024 Misbah Krish Onychomycosis B35.1 ; Pain in left toe(s) M79.675 and Ingrown nail L60.0 [facility] [address] 05/21/2024 Misbah Krish Skin ulcer of toe of right foot with fat layer exposed L97.512 ; Pain in left toe(s) M79.675 and Onychomycosis B35.[facility] [address] 08/18/2024 Misbah Krish Pain in left toe(s) M79.675 and Onychomycosis B35.1 Assessments Encounter Date Diagnosis (ICD Code) Assessment Notes Treatment Notes Treatment Clinical Notes Section Notes 04/28/2024 Pain in left toe(s) (ICD-10 - M79.675) 04/28/2024 Onychomycosis (ICD-10 - B35.1) 08/18/2024 Pain in left toe(s) (ICD-10 - M79.675) 08/18/2024 Onychomycosis (ICD-10 - B35.1) 05/21/2024 Skin ulcer of toe of right foot with fat layer exposed (ICD-10 - L97.512) Patient Educated with: WOUND CARE INSTRUCTIONS.p df (WOUND CARE INSTRUCTIONS.p df) 05/21/2024 Pain in left toe(s) (ICD-10 - M79.675) 04/28/2024 Ingrown nail (ICD-10 - L60.0) 05/21/2024 Onychomycosis (ICD-10 - B35.1) 05/21/2024 Other Plan Of Treatment Pending Test Test Name Order Date [id number] 04/28/2024 [id number] SKIN/TISSUE 05/21/2024 Next Appt Details Provider Name:Misbah Jose Luis Rutherford , 11/10/2024 03:30:00 PM, [address] [address], [place], [address], Insurance Providers Payer Name Payer Address Payer Phone Subscriber Number Group Number Insured Name Patient Relationship to Insured Coverage Start Date Coverage End Date [address] [address] [id number] [facility] Self - patient is the insured [facility] [address] [place] [address] [phone] [id number] 23 [facility] Self - patient is the insured 4 Medical (General) History Medical History History ICD Code Arthritis Back,Hip,and Knee pain CAD (Cholesterol) Depression Diverticulosis Headaches/Migraines Psoriasis/eczema Reflux ( GERD) sinusitis Measles Mumps Chicken pox Surgical History Surgery Date(Month/Year) [facility] bone spur 2024 foot surgery
--- OUTSIDE RECORDS SUMMARY | 2024-10-13 16:46 | XMS_ITS | Patient Health Record ---
Author Organization [facility] Address [address] [place] [address] Care Team Providers Care It Engineer Name Role Phone Adams GUIDO, Shaun Primary Care Provider Andreas Ferraro [phone] Reason For Referral No Information Medications Medication SIG (Take, Route, Frequency, Duration) Notes Start Date End Date Status Simvastatin Active Problems Problem Type SNOMED Code ICD Code Onset Dates Problem Status W/U Status Risk Notes Problem Special screening for malignant neoplasms, colon (V76.51) Active confirmed Plan Of Treatment No Information Insurance Providers Payer Name Payer Address Payer Phone Subscriber Number Group Number Insured Name Patient Relationship to Insured Coverage Start Date Coverage End Date [facility] [address] [place] [address] [id number] ABIGAIL SALCIDO Self - patient is the insured Medical (General) History Medical History History ICD Code Denies [place],DM,CVA,Lung disease,renal dise ase Surgical History Surgery Date(Month/Year) eye surgery hernia
== END 2024-10-13 16:11 | disposition home or self-care (01) ==
LOC: HO.HMCH 15:06
PROVIDERS: PCP Physician Assistant; Visit Provider Physician Assistant
DX: E78.2 Mixed hyperlipidemia (principal); R21 Rash and other nonspecific skin eruption; Z87.891 Personal history of nicotine dependence; K21.9 Gastro-esophageal reflux disease without esophagitis; R07.89 Other chest pain

== ENCOUNTER 2024-10-21 08:04 | Outpatient (REF) | payer OTHER, SELFPAY ==
--- OUTSIDE RECORDS SUMMARY | 2024-05-19 09:15 | XMS_ITS ---
Author Organization [facility] Address [address] [place] [address] Care Team Providers Care Heating Operators Engineer Name Role Phone Nael Bedolla Primary Care Provider Unavailab Misbah Cuellar Unavailable [phone] Encounters Encounter Location Date Provider Diagnosis [address] [address] 05/19/2024 Misbah Rutherford Plan Of Treatment Next Appt Details Provider Name:Misbah Rutherford , 11/10/2024 03:30:00 PM, [address] [place] [address], [phone], Progress Notes * Jorge SALCIDO SrDOB:04/1959 (64 yo M)Acc No.[id number]:05/19/2024 Progress Notes Patient: Junaid HUNT Jorge Michele Sr Provider: Meir Rutherford DPM :1960 A ge:64 Y S ex:Male Date:05/19/2024 Address:[address] [place], [place] [phone] Pcp:Nael Bedolla Subjective: * Chief Complaints: * [...] 0 05/19/2024 Generated for Ulysses brito/Osorio on: 0 10/21/2024 08:34 AM EDT
--- OUTSIDE RECORDS SUMMARY | 2024-06-24 05:30 | XMS_ITS ---
Author Organization [facility] Address [address] [place] [address] Care Team Providers Care Animal Tech Name Role Phone Nael Bedolla Primary Care Provider Unavailab Misbah Cuellar Unavailable [phone] Shea Rios Unavailable [phone] REASON FOR VISIT sooner appt Encounters Encounter Location Date Provider Diagnosis [facility] [address] [place] [address] 06/24/2024 Shea Rios Plan Of Treatment Next Appt Details Provider Name:Misbah Rutherford , 11/10/2024 03:30:00 PM, [address] [facility], [address], [place], [address], Progress Notes * Jorge SALCIDO SrDOB:04/1959 (64 yo M)Acc No.[id number]:06/24/2024 Progress Notes Patient: Junaid VELAJorge ARREAGA Sr Provider: Junaid Rios DPM :1960 A ge:64 Y S ex:Male Date:06/24/2024 Address:[address] [place], [place] [id number] Pcp:Nael Bedolla Subjective: * Chief Complaints: * [...] 06/24/2024 Generated for Ulysses brito/Katarina/Kenny on: 0 10/21/2024 08:34 AM EDT
--- NOTE | ~2024-10-21 | XR_ITS ---
EXAMINATION: XR CHEST CLINICAL INFORMATION: R05.1 - Acute cough COMPARISON: 09/14/2022. TECHNIQUE: 2 views of the chest were obtained. FINDINGS: The cardiac, hilar, and mediastinal contours are normal. The lungs are clear bilaterally. There is no pneumothorax or pleural effusion. There is no focal osseous or soft tissue abnormality. XR/XR chest 2V IMPRESSION: No active pulmonary disease. Electronically signed by: Chris Ricketts MD 10/21/2024 09:39 AM EDT
--- OUTSIDE RECORDS SUMMARY | 2024-10-21 08:34 | XMS_ITS | Patient Health Record ---
Author Organization [facility] Address [address] [place] [address] Care Team Providers Care Test Designer Name Role Phone Adams GUIDO, Shaun Primary Care Provider Andreas Ferraro [phone] Reason For Referral No Information Medications Medication [...] Insured Coverage Start Date Coverage End Date [facility] [address] [place] [address] [phone] [id number] ABIGAIL SALCIDO Self - patient is the insured Medical (General) History Medical History History ICD Code Denies [place],DM,CVA,Lung disease,renal dise ase Surgical History Surgery Date(Month/Year) eye surgery hernia
--- OUTSIDE RECORDS SUMMARY | 2024-10-21 08:35 | XMS_ITS | Patient Health Record ---
Author Organization [facility] Address [address] [place] [address] Care Team Providers Care Residential Driver Name Role Phone Nael Bedolla Primary Care Provider Unavailab Misbah Cuellar Unavailable [phone] Shea Rios Unavailable [phone] Allergies No Known Allergies Reason For Referral [...] Status W/U Status Risk Notes Problem Onychomycosis (518279612) Onychomycosis (B35.1) Active confirmed Vital Signs Blood pressure diastolic 74 mm Hg 08/18/2024 Height 5ft 6in in 08/18/2024 Blood pressure systolic 126 mm Hg 08/18/2024 Weight 160 lbs 08/18/2024 BMI 25.82 kg/m2 08/18/2024 Procedures Procedure Date Ordered Date Performed Result Body Sit e 48136-WLY 04/28/2024 N/A [id number] SKIN/TISSUE 05/21/2024 N/A Encounters Encounter Location Date Provider Diagnosis [facility] [address] 04/28/2024 Misbah Krish Onychomycosis B35.1 ; Pain in left toe(s) M79.675 and Ingrown nail L60.[address] [facility] [address] 05/21/2024 Misbah Krish Skin ulcer of toe of right foot with fat layer exposed L97.512 ; Pain in left toe(s) M79.675 and Onychomycosis B35.1 [facility] [address] 08/18/2024 Misbah Krish Pain in left toe(s) [...] Treatment Pending Test Test Name Order Date [id number] 04/28/2024 [id number] SKIN/TISSUE 05/21/2024 Next Appt Details Provider Name:Misbah Jose Luis Rutherford , 11/10/2024 03:30:00 PM, [address] [address], [place], [address], Insurance Providers Payer Name Payer Address Payer Phone Subscriber Number Group Number Insured Name Patient Relationship to Insured Coverage Start Date Coverage End Date [address] [address] [id number] [facility] Self - patient is the insured [facility] [address] [place] [address] [id number] 23 [facility] Self - patient is the insured 4 Medical (General) History Medical History History ICD Code Arthritis Back,Hip,and Knee pain CAD (Cholesterol) Depression Diverticulosis Headaches/Migraines Psoriasis/eczema Reflux ( GERD) sinusitis Measles Mumps Chicken pox Surgical History Surgery Date(Month/Year) [facility] bone spur 2024 foot surgery
[2024-10-21 08:46] LABS: Hematocrit 48.6 % (42.0-52.0); Hemoglobin 16.7 g/dl (14.0-18.0); Mean Corpuscular HGB Conc 34.4 g/dl (31.0-36.0); Mean Corpuscular Hemoglobin 31.2 pg (27.0-33.0); Mean Corpuscular Volume 90.8 fL (80.0-98.0); NRBC Abs Auto 0.000 X10*3/uL (0.0-0.012); NRBC Pct Auto 0.0 /100WBC (0.0-0.2); Platelet Count 259 X10*3/uL (160-400); Red Blood Count 5.35 X10*6/uL (4.60-5.80); White Blood Count 5.4 X10*3/uL (4.8-10.8)
[2024-10-21 09:25] LABS: Alanine Aminotransferase 32 U/L (0-40); Albumin Level 4.7 g/dL (3.5-5.0); Alkaline Phosphatase 75 U/L (39-117); Anion Gap 9 (12-20); Aspartate Amino Transferase 24 U/L (5-37); Blood Urea Nitrogen 13 mg/dL (9-16); Calcium 9.2 mg/dL (8.4-10.2); Carbon Dioxide 27 mmol/L (22-29); Chloride 109 mmol/L (96-108); Cholesterol 197 mg/dL (<200); Estimated Glomerular Filt Rate > 60; HDL Cholesterol 55 mg/dL (>40); Potassium 4.6 mmol/L (3.3-5.1); Sodium 140 mmol/L (135-145); Total Protein 7.2 g/dL (6.5-8.0); Triglycerides 86 mg/dL (<150)
== END 2024-10-21 08:05 | disposition home or self-care (01) ==
LOC: HO.LAB 08:04
PROVIDERS: Absent Provider Internal Medicine Cardiovascular Disease; PCP Physician Assistant; Visit Provider Physician Assistant
DX: Z12.5 Encounter for screening for malignant neoplasm of prostate (principal); E78.2 Mixed hyperlipidemia; R05.1 Acute cough
CPT/HCPCS: 36415; 71046; 80053; 80061; 84153; 85027

== ENCOUNTER → 2024-10-21 08:34 | Outpatient (BNV) | payer OTHER, SELFPAY | PROVIDERS: Absent Provider Internal Medicine Cardiovascular Disease; PCP Physician Assistant; Visit Provider Radiology Diagnostic Radiology | DX: R05.1 Acute cough (principal) | CPT/HCPCS: 71046 ==

== ENCOUNTER 2024-11-04 14:18 | Outpatient (REF) | payer SELFPAY ==
--- OUTSIDE RECORDS SUMMARY | 2024-05-19 09:15 | XMS_ITS ---
Author Organization [facility] Address [address] [place] [address] Care Team Providers Care Cpc Coder Name Role Phone Nael Bedolla Primary Care Provider Unavailab Misbah Cuellar Unavailable [phone] Encounters Encounter Location Date Provider Diagnosis [address] [address] 05/19/2024 Misbah Rutherford Plan Of Treatment Next Appt Details Provider Name:Misbah Rutherford , 11/10/2024 03:30:00 PM, [address] [place] [address], [phone], Progress Notes * Jorge SALCIDO SrDOB:04/1959 (64 yo M)Acc No.[id number]:05/19/2024 Progress Notes Patient: Junaid HUNT Jorge Michele Sr Provider: Meir Rutherford DPM :1960 A ge:64 Y S ex:Male Date:05/19/2024 Address:[address] [place], [place] [id number] Pcp:Nael Bedolla Subjective: * Chief Complaints: * [...] 05/19/2024 Generated for Ulysses brito/Osorio on: 0 11/04/2024 06:05 PM EDT
--- OUTSIDE RECORDS SUMMARY | 2024-06-24 05:30 | XMS_ITS ---
Author Organization [facility] Address [address] [place] [address] Care Team Providers Care Acid Filler Name Role Phone Nael Bedolla Primary Care Provider Unavailab Misbah Cuellar Unavailable [phone] Shea Rios Unavailable [phone] REASON FOR VISIT sooner appt Encounters Encounter Location Date Provider Diagnosis [facility] [address] [place] [address] 06/24/2024 Shea Rios Plan Of Treatment Next Appt Details Provider Name:Misbah Rutherford , 11/10/2024 03:30:00 PM, [address] [facility], [address], [place], [address], Progress Notes * Jorge SALCIDO SrDOB:04/1959 (64 yo M)Acc No.[id number]:06/24/2024 Progress Notes Patient: Junaid VELAJorge ARREAGA Sr Provider: Junaid Rios DPM :1960 A ge:64 Y S ex:Male Date:06/24/2024 Address:[address] [place], [place] [id number] Pcp:Nael Bedolla Subjective: * Chief Complaints: * [...] 06/24/2024 Generated for Ulysses brito/Katarina/Kenny on: 0 11/04/2024 06:06 PM EDT
--- OUTSIDE RECORDS SUMMARY | 2024-11-04 18:06 | XMS_ITS | Patient Health Record ---
Author Organization [facility] Address [address] [place] [address] Care Team Providers Care Statistical Financial Analyst Name Role Phone Nael Bedolla Primary Care Provider Unavailab Misbah Cuellar Unavailable [phone] Shea Rios Unavailable [phone] Allergies No Known Allergies Reason For Referral [...] Status W/U Status Risk Notes Problem Onychomycosis (955652060) Onychomycosis (B35.1) Active confirmed Vital Signs Blood pressure diastolic 74 mm Hg 08/18/2024 Height 5ft 6in in 08/18/2024 Blood pressure systolic 126 mm Hg 08/18/2024 Weight 160 lbs 08/18/2024 BMI 25.82 kg/m2 08/18/2024 Procedures Procedure Date Ordered Date Performed Result Body Sit e 76028-DVP 04/28/2024 N/A [id number] SKIN/TISSUE 05/21/2024 N/A Encounters Encounter Location Date Provider Diagnosis [address] [address] 04/28/2024 Misbah Rutherford Onychomycosis B35.1 ; Pain in left toe(s) M79.675 and Ingrown nail L60.[address] [address] 05/21/2024 Misbah Rutherford Skin ulcer of toe of right foot with fat layer exposed L97.512 ; Pain in left toe(s) M79.675 and Onychomycosis B35.[address] [address] 08/18/2024 Misbah Rutherford Pain in left toe(s) M79.675 and Onychomycosis B35.[address] [address] 11/04/2024 Misbah Rutherford Assessments Encounter Date Diagnosis (ICD Code) Assessment [...] Treatment Pending Test Test Name Order Date [id number] 04/28/2024 [id number] SKIN/TISSUE 05/21/2024 Next Appt Details Provider Name:Misbah Rutherford , 11/10/2024 03:30:00 PM, [address] [address], [place], [phone], Insurance Providers Payer Name Payer Address Payer Phone Subscriber Number Group Number Insured Name Patient Relationship to Insured Coverage Start Date Coverage End Date [address] [address] [phone] [id number] [facility] Self - patient is the insured [address] [id number] [facility] Self - patient is the insured 4 Medical (General) History Medical History History ICD Code Arthritis Back,Hip,and Knee pain CAD (Cholesterol) Depression Diverticulosis Headaches/Migraines Psoriasis/eczema Reflux ( GERD) sinusitis Measles Mumps Chicken pox Surgical History Surgery Date(Month/Year) [facility] bone [place] 2024 foot surgery
--- OUTSIDE RECORDS SUMMARY | 2024-11-04 18:06 | XMS_ITS | Patient Health Record ---
Author Organization [facility] Address [address] [place] [address] Care Team Providers Care Household Worker Name Role Phone Adams GUIDO, Shaun Primary Care Provider Andreas Ferraro [phone] Reason For Referral No Information Medications Medication SIG (Take, Route, Frequency, Duration) Notes Start Date End Date Status Simvastatin Active Problems Problem Type SNOMED Code ICD Code Onset Dates Problem Status W/U Status Risk Notes Problem Screening for malignant neoplasm of colon (730387002) Special screening for malignant neoplasms, colon (V76.51) Active confirmed Plan Of Treatment No Information Insurance Providers Payer Name Payer Address Payer Phone Subscriber Number Group Number Insured Name Patient Relationship to Insured Coverage Start Date Coverage End Date [facility] [address] [place] [address] [phone] [id number] ABIGAIL SALCIDO Self - patient is the insured Medical (General) History Medical History History ICD Code Denies [place],DM,CVA,Lung disease,renal dise ase Surgical History Surgery Date(Month/Year) eye surgery hernia
== END 2024-11-04 14:19 | disposition home or self-care (01) ==
LOC: HO.HAP 14:18
PROVIDERS: Visit Provider Physician Assistant
DX: Z46.1 Encounter for fitting and adjustment of hearing aid (principal); H90.3 Sensorineural hearing loss, bilateral
CPT/HCPCS: V5264

== ENCOUNTER 2024-11-14 15:48 | Outpatient (AMB) | payer OTHER, SELFPAY ==
--- OUTSIDE RECORDS SUMMARY | 2024-05-19 09:15 | XMS_ITS ---
Author Organization [facility] Address [address] [place] [address] Care Team Providers Care Lozenge Maker Name Role Phone Nael Bedolla Primary Care Provider Unavailab Misbah Cuellar Unavailable [phone] Encounters Encounter Location Date Provider Diagnosis [address] [address] 05/19/2024 Misbah Rutherford Plan Of Treatment Next Appt Details Provider Name:Misbah Rutherford , 02/26/2025 04:00:00 PM, [address] [place] [address], [phone], Progress Notes * Jorge SALCIDO SrDOB:04/1959 (64 yo M)Acc No.[id number]:05/19/2024 Progress Notes Patient: Junaid HUNT Jorge Michele Sr Provider: Meir Rutherford DPM :1960 A ge:64 Y S ex:Male Date:05/19/2024 Address:[address] [place], [place] [id number] Pcp:Nael Bedolla Subjective: * Chief Complaints: * [...] 05/19/2024 Generated for Ulysses brito/Osorio on: 0 11/14/2024 04:06 PM EDT
--- OUTSIDE RECORDS SUMMARY | 2024-06-24 05:30 | XMS_ITS ---
Author Organization [facility] Address [address] [place] [address] Care Team Providers Care Loan Servicing Officer Name Role Phone Nael Bedolla Primary Care Provider Unavailab Misbah Cuellar Unavailable [phone] Shea Rios Unavailable [phone] REASON FOR VISIT sooner appt Encounters Encounter Location Date Provider Diagnosis [facility] [address] [place] [address] 06/24/2024 Shea Rios Plan Of Treatment Next Appt Details Provider Name:Misbah Rutherford , 02/26/2025 04:00:00 PM, [address] [facility], [address], [place], [address], Progress Notes * Jorge SALCIDO SrDOB:04/1959 (64 yo M)Acc No.[id number]:06/24/2024 Progress Notes Patient: Junaid VELAJorge ARREAGA Sr Provider: Junaid Rios DPM :1960 A ge:64 Y S ex:Male Date:06/24/2024 Address:[address] [place], [place] [id number] Pcp:Nael Bedolla Subjective: * Chief Complaints: * [...] 0 06/24/2024 Generated for Ulysses brito/Katarina/Kenny on: 0 11/14/2024 04:06 PM EDT
--- OUTSIDE RECORDS SUMMARY | 2024-11-10 11:30 | XMS_ITS ---
Author Organization [facility] Address [address] [place] [address] Care Team Providers Care Supervisor Malted Milk Name Role Phone Nael Bedolla Primary Care Provider Unavailab Misbah Cuellar Unavailable [phone] Encounters Encounter Location Date Provider Diagnosis [address] [address] 11/10/2024 Misbah Rutherford Plan Of Treatment Next Appt Details Provider Name:Misbah Rutherford , 02/26/2025 04:00:00 PM, [address] [place] [address], [address], Progress Notes * Jorge SALCIDO SrDOB:04/1959 (64 yo M)Acc No.[id number]:11/10/2024 Progress Note Patient: Junaid HUNT Jorge Michele Provider: Meir Rutherford DPM :1960 A ge:64 Y S ex:Male Date:11/10/2024 Address:[address] [place], [place] [id number] Pcp:Nael Bedolla Subjective: * Chief Complaints: * [...] 0 11/10/2024 Generated for Ulysses brito/Osorio on: 11/14/2024 04:07 PM EDT
--- NOTE | 2024-11-14 15:49 | MHC.OFFVIS ---
Vital Signs 11/14/24 15:54 Height 5 ft 6 in Weight 159 lb BMI 25.7 BP 130/68 Blood Pressure Location Rt brachial Position Sitting Pulse 64 Pulse Source Pulse Oximeter Pulse Oximetry (%) 98 Oxygen Delivery Method Room Air Intake Visit Reasons: Constipation (pedi) Intake Note: Est pt for mgmt of constipation + chronic abd pain. CC: Pt reports having intermittent episodes of constipation. However, pt reports he has been doing fairly well since last visit. No other sx or concerns to report per pt. Green Chain Offbearer Required: No Accompanied by: Self / Same As Patient Allergies Seasonal Allergies Allergy (Intermediate, Verified 10/13/24 15:53) Sneezing HPI HPI Constipation (pedi): Details: LAST VISIT LLQ abdominal pain Constipation GERD (gastroesophageal reflux disease) Diverticulosis Plan Long discussion with patient about diet choices. Increasing fluid intake and activity to promote better bowel motility. Patient was also encouraged to increase fiber add probiotic daily. FODMAP diet discussed with patient again. List of food recommended as well as list of food to avoid given to patient. Patient reports abdominal cramping specially when he has to have a bowel movement, most likely related to Dulcolax and Colace. Patient will start senna and fiber therapy. Will stop Linzess. High co-pay and patient had on desirable effect where he had diarrhea and did not feel like he empties his bowels well. Patient will follow-up in 1 year. He will call our office if he will have any GI concerning symptoms. If he will continue to have a left lower quadrant pain, inability to have a bowel movement and fever to go to ER or call our office. He is agreeable to current plan of care and verbalizes understanding of instructions. He was given the opportunity to ask questions and all questions answered. ? Thank you for allowing me to participate in his care New sennosides (Natural Senna Laxative) 17.2 mg (2 x 8.6 mg) PO BEDTIME 60 tabs 3RF constipation K59.00 sennosides (Natural Senna Laxative) 17.2 mg (2 x 8.6 mg) PO BEDTIME 60 tabs 3RF constipation K59.00 methylcellulose (laxative) (Citrucel) take it with full glass of water 500 mg PO DAILY 30 tabs 2RF K59.00 methylcellulose (laxative) (Citrucel) take it with full glass of water 500 mg PO DAILY 30 tabs 2RF K59.00 Discontinued linaclotide (Linzess) Discontinued Reason: Doctor's Order 145 mcg PO DAILY 90 days 90 caps 2RF K59.09 docusate sodium Discontinued Reason: Doctor's Order 100 mg PO DAILY 90 caps 3RF K59.00 bisacodyl (Dulcolax (bisacodyl)) Discontinued Reason: Doctor's Order 10 mg (2 x 5 mg) PO BEDTIME 180 tabs 4RF TODAY'S VISIT Patient here for 1 year follow up for constipation. Patient reports he has a bowel movement every other day. Last visit was counseled on appropriate diet choices and to eat a high fiber/Low FODMAP diet. He was prescribed senna as well as citrucel daily. Patient reports these were helpful for a while and stopped taking the citrucel daily. He takes the citrucel as needed now. He reports his diet is still not the best and frequently eats dairy, starchy carbs. Does not incorporate fiber or hydration in a daily diet. He reports that his bowel movements are every other day and he strains to go and often finds that these stools are loose. He finds that this causes abdominal cramping and bloating.? Patient also with history of GERD, was previously on omeprazole and PCP stopped omeprazole and patient now takes famotidine prn. Denies dysphagia, dyspepsia, odynophagia, heartburn, early satiety, epigastric pain, belching, change in bowel habits, diarrhea, loose stools, constipation, melena, hematochezia, ribbon like stools, nausea, vomiting, unintentional weight loss. Patient reports abdominal bloating and X a lattice. Has no known adverse reactions to anesthesia. He is due for a colonoscopy in 2027. Has a history of tubular adenoma removed.? [facility] Medical History Tubular adenoma Diverticulosis Hyperlipidemia PVC (premature ventricular contraction) Surgical History History of tooth extraction Hx of colonoscopy History of foot surgery Family History Father CAD (coronary artery disease) Mother Cancer Sister Colon polyps Social History Housing: Apartment Alcohol intake: current Alcohol intake frequency: holidays/special occasions only Patient Tobacco Use Status: Never used Tobacco e-Cigarette/Vaping Use: Never Used Second Hand Smoke Exposure: No service: No Current occupational status: employed Current occupation: [employer] Cognitive needs: No Hearing needs: Yes (Pt has hearing aids) Vision needs: Yes (Glasses) Review of Systems Const Denies weight gain and Denies weight loss ENT Reports no additional complaints, Denies dysphagia and Denies odynophagia Card Reports no additional complaints Resp Reports no additional complaints GI Reports abdominal pain (LLQ), Denies belching, Denies melena, Reports bloating, Denies change in bowel habits, Reports constipation, Denies dysphagia, Denies excessive flatus, Denies dyspepsia, Denies heartburn, Denies diarrhea, Reports loose stools, Denies nausea, Denies odynophagia and Denies vomiting Reports no additional complaints Musc Reports no additional complaints Neuro Reports no additional complaints Psych Reports no additional complaints Endo Reports no additional complaints Physical Exam Vital Signs: Last Vital Signs Pulse 64 11/14/24 15:54 BP 130/68 11/14/24 15:54 Pulse Ox 98 11/14/24 15:54 Oxygen Delivery Method Room Air 11/14/24 15:54 BMI result Body Mass Index 25.7 Const General: healthy appearing, no acute distress and well developed Nutritional Appearance: well nourished Orientation/consciousness: patient oriented x3 Resp Effort & Inspection: normal respiratory effort, able to speak in complete sentences, no tracheal deviation and symmetric chest movement Auscultation: clear to auscultation bilaterally Cardio Rate: regular rate GI Inspection: Yes normal to inspection and No distended Palpation (GI): Soft to palpation, not firm, nontender and No hepatosplenomegaly present Auscultation: normal bowel sounds General: Yes no CVA tenderness Back/Spine/Pelvis Back: no CVA tenderness Skin General skin exam: elasticity normal, turgor normal and dry skin Neuro General: patient oriented x3 Psych Appearance: grossly normal Mental Status: mental status grossly normal Assessment & Plan Assessment & Plan (1) GERD (gastroesophageal reflux disease): Code(s): K21.9 - Gastro-esophageal reflux disease without esophagitis Category: Medical Qualifiers: Esophagitis presence: esophagitis presence not specified Qualified Code(s): K21.9 - Gastro-esophageal reflux disease without esophagitis (2) Diverticulosis: Code(s): K57.90 - Diverticulosis of intestine, part unspecified, without perforation or abscess without bleeding Category: Medical (3) Constipation: Code(s): K59.00 - Constipation, unspecified Category: Medical Qualifiers: Constipation type: other constipation type Qualified Code(s): K59.09 - Other constipation (4) Abdominal bloating: Code(s): R14.0 - Abdominal distension (gaseous) Plan Discussed at length about appropriate diet choices and how following GERD/FODMAP diets may help with symptoms. We will try adding creon 1 capsule with meals up to 4 times a day to see if this helps. He should take his citrucel or a fiber supplement daily to bulk stools and promote full emptying of bowels. GERD precautions discussed with him as well. Avoiding diet very triggers and late night snacking. Staying upper for minimal 3 hours after meals discussed with patient. Patient will follow up in 1 year or sooner if needed.? Medications: New Creon 36,000-114,000- 180,000 unit (umdxmr-cqxcaczs-qjohbor) administer with meals and/or snacks 1 cap PO QID 120 caps 5RF NS K86.89 - Other specified diseases of pancreas Refilled methylcellulose (laxative) (Citrucel) take it with full glass of water 500 mg PO DAILY 90 tabs 2RF K59.00 - Constipation, unspecified Discontinued omeprazole Discontinued Reason: Doctor's Order 40 mg PO DAILY 90 days 90 caps 0RF K21.9 - Gastro-esophageal reflux disease without esophagitis Coding Level of Care Code Est Pt Level 4 (04473) Complex EM visit Add On G2211 Diagnoses Gastroesophageal reflux disease, unspecified whether esophagitis present K21.9 Esophagitis presence: esophagitis presence not specified Diverticulosis K57.90 Other constipation K59.09 Constipation type: other constipation type Abdominal bloating R14.0 Time Spent (min) 35 Comment 25 minute spent with patient and additional 10 minutes spent reviewing his records
[2024-11-14 15:54] VITALS: BP 130/68; PULSE 64; O2SAT 98; BMI 25.7
--- OUTSIDE RECORDS SUMMARY | 2024-11-14 16:07 | XMS_ITS | Patient Health Record ---
Author Organization [facility] Address [address] [place] [address] Care Team Providers Care Switching Operator Name Role Phone Nael Bedolla Primary Care Provider Unavailab Misbah Cuellar Unavailable [phone] Shea Rios Unavailable [phone] Allergies No Known Allergies Reason For Referral [...] Status W/U Status Risk Notes Problem Onychomycosis (301666356) Onychomycosis (B35.1) Active confirmed Vital Signs Blood pressure diastolic 74 mm Hg 08/18/2024 Height 5ft 6in in 08/18/2024 Blood pressure systolic 126 mm Hg 08/18/2024 Weight 160 lbs 08/18/2024 BMI 25.82 kg/m2 08/18/2024 Procedures Procedure Date Ordered Date Performed Result Body Sit e [id number] 04/28/2024 N/A [id number] SKIN/TISSUE 05/21/2024 N/A Encounters Encounter Location Date Provider Diagnosis [address] [address] 04/28/2024 Misbah Rutherford Onychomycosis B35.1 ; Pain in left toe(s) M79.675 and Ingrown nail L60.[address] [address] 05/21/2024 Misbah Rutherford Skin ulcer of toe of right foot with fat layer exposed L97.512 ; Pain in left toe(s) M79.675 and Onychomycosis B35.[address] [address] 08/18/2024 Misbah Rutherford Pain in left toe(s) M79.675 and Onychomycosis B35.[address] [address] 11/04/2024 Misbah Rutherford [address] [address] 11/10/2024 Misbah Rutherford Assessments Encounter Date Diagnosis (ICD [...] Treatment Pending Test Test Name Order Date [id number] 04/28/2024 [id number] SKIN/TISSUE 05/21/2024 Next Appt Details Provider Name:Misbah Rutherford , 02/26/2025 04:00:00 PM, [address] [address], [place], [address], Insurance Providers Payer Name Payer Address Payer Phone Subscriber Number Group Number Insured Name Patient Relationship to Insured Coverage Start Date Coverage End Date [facility] [address] [place] [address] [id number] [facility] Self - patient is the insured [facility] [address] [place] [address] [phone] [id number] [place] , [place] Self - patient is the insured Medical (General) History Medical History History ICD Code Arthritis Back,Hip,and Knee pain CAD (Cholesterol) Depression Diverticulosis Headaches/Migraines Psoriasis/eczema Reflux ( GERD) sinusitis Measles Mumps Chicken pox Surgical History Surgery Date(Month/Year) [facility]- bone spur 2024 foot surgery
--- OUTSIDE RECORDS SUMMARY | 2024-11-14 16:07 | XMS_ITS | Patient Health Record ---
Author Organization [facility] Address [address] [place] [address] Care Team Providers Care Shipping Room Supervisor Name Role Phone Adams GUIDO, Shaun Primary Care Provider Andreas Ferraro [phone] Reason For Referral No Information Medications Medication SIG (Take, Route, Frequency, Duration) Notes Start Date End Date Status Simvastatin Active Problems Problem Type SNOMED Code ICD Code Onset Dates Problem Status W/U Status Risk Notes Problem Screening for malignant neoplasm of colon (384658996) Special screening for malignant neoplasms, colon (V76.51) Active confirmed Plan Of Treatment No Information Insurance Providers Payer Name Payer Address Payer Phone Subscriber Number Group Number Insured Name Patient Relationship to Insured Coverage Start Date Coverage End Date [facility] [address] [place] [phone] [id number] ABIGAIL SALCIDO Self - patient is the insured Medical (General) History Medical History History ICD Code Denies [place],DM,CVA,Lung disease,renal dise ase Surgical History Surgery Date(Month/Year) eye surgery hernia
== END 2024-11-14 16:17 | disposition home or self-care (01) ==
LOC: HO.HGI 15:48
PROVIDERS: PCP Physician Assistant; Visit Provider Nurse Practitioner Family
DX: K21.9 Gastro-esophageal reflux disease without esophagitis (principal); K57.90 Diverticulosis of intestine, part unspecified, without perforation or abscess without bleeding; K59.09 Other constipation; R14.0 Abdominal distension (gaseous)
CPT/HCPCS: 99214; G2211

== ENCOUNTER 2025-01-07 07:51 | Outpatient (REF) | payer OTHER, SELFPAY ==
--- OUTSIDE RECORDS SUMMARY | 2024-05-19 08:15 | XMS_ITS ---
Author Organization [facility] Address [address] [place] [address] Care Team Providers Care Twisting Department End Finder Name Role Phone Nael Bedolla Primary Care Provider Unavailab Misbah Cuellar Unavailable [phone] Encounters Encounter Location Date Provider Diagnosis [address] [address] 05/19/2024 Misbah Rutherford Plan Of Treatment Next Appt Details Provider Name:Misbah Rutherford , 02/26/2025 04:00:00 PM, [address] [place] [address], [phone], Progress Notes * Jorge SALCIDO SrDOB:04/1959 (64 yo M)Acc No.[id number]:05/19/2024 Progress Notes Patient: Junaid HUNT Jorge Michele Sr Provider: Meir Rutherford DPM :1960 A ge:64 Y S ex:Male Date:05/19/2024 Address:[address] [place], [place] [id number] Pcp:Nael Bedolla Subjective: * Chief Complaints: * * Medical History: Objective: * Vitals: Assessment: Plan: * Treatment: * Images: * The named appointment provid er may or may not be the originator of this progress note, and it is not deemed complete until electronically signed by the appointment provider. Sign off status: Pending * Provider: Meir Rutherford DPM Date: 0 05/19/2024 Generated for Ulysses brito/Osorio on: 1 03/09/2024 03:22 PM EST
--- OUTSIDE RECORDS SUMMARY | 2024-06-24 04:30 | XMS_ITS ---
Author Organization [facility] Address [address] [place] [address] Care Team Providers Care Quarry Worker Name Role Phone Nael Bedolla Primary Care Provider Unavailab Misbah Cuellar Unavailable [phone] Shea Rios Unavailable [phone] REASON FOR VISIT sooner appt Encounters Encounter Location Date Provider Diagnosis [facility] [address] [place] [address] 06/24/2024 Shea Rios Plan Of Treatment Next Appt Details Provider Name:Misbah Rutherford , 02/26/2025 04:00:00 PM, [address] [facility], [address], [place], [address], Progress Notes * Jorge SALCIDO SrDOB:04/1959 (64 yo M)Acc No.[id number]:06/24/2024 Progress Notes Patient: Junaid VELAJorge ARREAGA Sr Provider: Junaid Rios DPM :1960 A ge:64 Y S ex:Male Date:06/24/2024 Address:[address] [place], [place] [id number] Pcp:Nael Bedolla Subjective: * Chief Complaints: * 1 . Sooner appt. * Medical History: Objective: * Vitals: Assessment: Plan: * Treatment: * Images: * The named appointment provid er may or may not be the originator of this progress note, and it is not deemed complete until electronically signed by the appointment provider. Sign off status: Pending * Provider: Junaid Rios DPM Date: 0 06/24/2024 Generated for Ulysses brito/Katarina/Kenny on: 03/09/2024 03:22 PM EST
--- OUTSIDE RECORDS SUMMARY | 2024-11-10 10:30 | XMS_ITS ---
Author Organization [facility] Address [address] [place] [address] Care Team Providers Care Territory Sales Executive Name Role Phone Nael Bedolla Primary Care Provider Unavailab Misbah Cuellar Unavailable [phone] Encounters Encounter Location Date Provider Diagnosis [address] [address] 11/10/2024 Misbah Rutherford Plan Of Treatment Next Appt Details Provider Name:Misbah Rutherford , 02/26/2025 04:00:00 PM, [address] [place] [address], [address], Progress Notes * Jorge SALCIDO SrDOB:04/1959 (64 yo M)Acc No.[id number]:11/10/2024 Progress Note Patient: Junaid HUNT Jorge Michele Provider: Meir Rutherford DPM :1960 A ge:64 Y S ex:Male Date:11/10/2024 Address:[address] [place], [place] [id number] Pcp:Nael Bedolla Subjective: * Chief Complaints: * * Medical History: Objective: * Vitals: Assessment: Plan: * Treatment: * Images: * The named appointment provid er may or may not be the originator of this progress note, and it is not deemed complete until electronically signed by the appointment provider. Sign off status: Pending * Provider: Meir Rutherford DPM Date: 0 11/10/2024 Generated for Ulysses brito/Osorio on: 1 03/09/2024 03:22 PM EST
--- OUTSIDE RECORDS SUMMARY | 2025-01-07 15:23 | XMS_ITS | Patient Health Record ---
Author Organization [facility] Address [address] [place] [address] Care Team Providers Care Portal Developer Name Role Phone Nael Bedolla Primary Care Provider Unavailab Misbah Cuellar Unavailable [phone] Shea Rios Unavailable [phone] Allergies No Known Allergies Reason For Referral [...] Status W/U Status Risk Notes Problem Onychomycosis (694112009) Onychomycosis (B35.1) Active confirmed Vital Signs Blood pressure diastolic 74 mm Hg 08/18/2024 Height 5ft 6in in 08/18/2024 Blood pressure systolic 126 mm Hg 08/18/2024 Weight 160 lbs 08/18/2024 BMI 25.82 kg/m2 08/18/2024 Procedures Procedure Date Ordered Date Performed Result Body Sit e [id number] 04/28/2024 N/A [id number] SKIN/TISSUE 05/21/2024 N/A Encounters Encounter Location Date Provider Diagnosis [address] [address] 04/28/2024 Misbah Rutherford Onychomycosis B35.1 ; Pain in left toe(s) M79.675 and Ingrown nail L60.[address] [address] 05/21/2024 Misbah Rutherford Skin ulcer of toe of right foot with fat layer exposed L97.512 ; Pain in left toe(s) M79.675 and Onychomycosis B35.[address] [address] 08/18/2024 Misbah Rutherford Pain in left toe(s) M79.675 and Onychomycosis B35.[address] [address] 11/04/2024 Misbah Rutherford [address] [address] 11/10/2024 Misbah Rutherford Assessments Encounter Date Diagnosis [...] Treatment Pending Test Test Name Order Date [id number] 04/28/2024 [id number] SKIN/TISSUE 05/21/2024 Next Appt Details Provider Name:Misbah Rutherford , 02/26/2025 04:00:00 PM, [address] [address], [place], [address], Insurance Providers Payer Name Payer Address Payer Phone Subscriber Number Group Number Insured Name Patient Relationship to Insured Coverage Start Date Coverage End Date [facility] [address] [place] [address] [phone] [id number] [facility] Self - patient is the insured [facility] [address] [place] [address] [phone] [id number] Clarence , [place] Self - patient is the insured Medical (General) History Medical History History ICD Code Arthritis Back,Hip,and Knee pain CAD (Cholesterol) Depression Diverticulosis Headaches/Migraines Psoriasis/eczema Reflux ( GERD) sinusitis Measles Mumps Chicken pox Surgical History Surgery Date(Month/Year) [facility]- bone spur 2024 foot surgery
--- OUTSIDE RECORDS SUMMARY | 2025-01-07 15:23 | XMS_ITS | Patient Health Record ---
Author Organization [facility] Address [address] [place] [address] Care Team Providers Care Workers Compensation Claims Specialist Name Role Phone Shaun Lamas MD Primary Care Provider Andreas Ferraro [phone] Reason For Referral No Information Medications Medication SIG (Take, Route, Frequency, Duration) Notes Start Date End Date Status Simvastatin Active Social History Tobacco Use: Social History Observation Description Date Details (start date - stop date) Never Smoker NA - NA Social History Drugs/Alcohol: Social Info Question Answer Notes Alcohol Screen Did you have a drink containing alcohol in the past year? Yes Points 0 Interpretation Negative Tobacco Use: Social Info Question Answer Notes Tobacco Use/Smoking Patient is a nonsmoker Additional Details Category Social Info Options Details Miscellaneous: Marital status: Occupation: He works in the [employer] department at [employer] Problems Problem Type SNOMED Code ICD Code Onset Dates Problem Status W/U Status Risk Notes Problem Screening for malignant neoplasm of colon (355983388) Special screening for malignant neoplasms, colon (V76.51) Active confirmed Plan Of Treatment No Information Insurance Providers Payer Name Payer Address Payer Phone Subscriber Number Group Number Insured Name Patient Relationship to Insured Coverage Start Date Coverage End Date [facility] [address] [place] [phone] [id number] ABIGAIL SALCIDO Self - patient is the insured Medical (General) History Medical History History ICD Code Denies [place],DM,CVA,Lung disease,renal dise ase Surgical History Surgery Date(Month/Year) eye surgery hernia
== END 2025-01-07 07:52 | disposition home or self-care (01) ==
LOC: HO.SH 07:51
PROVIDERS: Visit Provider Physician Assistant
DX: H90.3 Sensorineural hearing loss, bilateral (principal)
CPT/HCPCS: 92557